=== PATIENT | male | born 1950 | race Caucasian/White ===

== ENCOUNTER → 2016-05-02 | Outpatient (CLI) | payer OTHER, MEDICARE | LOC: BHCLAF 10:00 | PROVIDERS: ATTEND Internal Medicine | DX: I31.3 Pericardial effusion (noninflammatory) (principal); R01.1 Cardiac murmur, unspecified | CPT/HCPCS: 93306-PO ==

== ENCOUNTER 2016-06-15 08:41 | Day surgery (SDC) | payer OTHER, MEDICARE ==
[2016-06-15] MEDS ORDERED: DIAZEPAM 5 MG TAB PO ONE (08:46)
[2016-06-15] MEDS ORDERED: diphenhydrAMINE 25 MG CAP PO ONE ×2 (08:46→09:07)
[2016-06-15] MEDS ORDERED: NS 1,000 ML IV ONE (08:46)
[2016-06-15] MEDS ORDERED: FAMOTIDINE 20 MG TAB PO ONE (08:46)
[2016-06-15] MEDS ORDERED: BENZOCAINE UNIT DOSE SPRAY HURRICAINE MM ONE (08:46)
[2016-06-15] MEDS ORDERED: ASPIRIN EC 325 MG TAB PO ONE ×2 (08:46→09:07)
[2016-06-15] MEDS ORDERED: fentaNYL 100 MCG/2 ML INJ IVP ONE (08:46)
[2016-06-15] MEDS ORDERED: MIDAZOLAM 2 MG/2 ML VIAL IVP ONE (08:46)
[2016-06-15] MEDS ORDERED: FAMOTIDINE 20 MG TAB ONE (09:07)
[2016-06-15] MEDS ORDERED: DIAZEPAM 5 MG TAB ONE (09:08)
--- NOTE | 2016-06-15 09:16 | CPEKG ---
Heart Rate: 54 RR Interval: 1111 P-R Interval: 196 QRSD Interval: 96 QT Interval: 444 QTC Interval: 421 P [place]: -18 QRS [place]: -57 T Wave [place]: 40 EKG Severity - ABNORMAL ECG - EKG Impression: SINUS RHYTHM EKG Impression: LEFT ANTERIOR FASCICULAR BLOCK EKG Impression: CONSIDER ANTEROSEPTAL INFARCT Electronically Signed By: Ayaan Barrera 16-Jun-2016 09:05:05
[2016-06-15 09:26] LABS: % IMMATURE GRANULYOCYTES 0.5 % (0.0-1.1); ABSOLUTE IMMATURE GRANULOCYTES 0.03 10^3/uL (0.00-0.10); ADD DIFF? NO; ADD MORPH? NO; ADD SCAN? NO; ATYPICAL LYMPHOCYTE FLAG 10 (0-99); FRAGMENT RBC FLAG 0 (0-99); HEMATOCRIT 44.7 % (40.0-51.0); HEMOGLOBIN 15.2 g/dL (13.7-17.5); LEFT SHIFT FLG 0 (0-99); LIPEMIA HEMOLYSIS FLAG 90 (0-99); MEAN CELL HEMOGLOBIN 28.7 pg (27.9-34.1); MEAN CELL VOLUME 84.5 fL (81.5-99.8); MEAN PLATELET VOLUME 8.4 fL (8.7-11.7); PLATELET CLUMPS FLAG 0 (0-99); PLATELET COUNT 232 10^3/uL (150-400); RED BLOOD CELL COUNT 5.29 10^6/uL (4.40-6.38); RED CELL DISTRIBUTION WIDTH 13.3 % (11.5-15.2)
[2016-06-15 09:28] LABS: ANION GAP 10 mEq/L (8-16); CALCIUM 9.7 mg/dL (8.5-10.4); CARBON DIOXIDE 27 mEq/l (22-31); CHLORIDE 101 mEq/L (97-110); CHOLESTEROL 204 mg/dL (140-220); CHOLESTEROL/HDL RATIO 2.52 RATIO (1.00-4.97); CREATININE 0.9 mg/dL (0.7-1.3); GLOMERULAR FILTRATION RATE > 60; GLUCOSE 102 mg/dL (70-100); HIGH DENSITY LIPOPROTEIN 81 mg/dL (40-65); LDL/HDL RATIO 1.28 RATIO (1.00-3.64); LOW DENSITY LIPOPROTEIN 104 mg/dL (80-100); MAGNESIUM 1.9 mg/dL (1.6-2.3); NON-HIGH DENSITY LIPOPROTEIN 123 mg/dL (90-129); POTASSIUM 4.2 mEq/L (3.5-5.2); SODIUM 138 mEq/L (134-144); TRIGLYCERIDE 97 mg/dL (40-150); VERY LOW DENSITY LIPOPROTEINS 19 mg/dL (8-25)
[2016-06-15 09:30] LABS: INR 1.11 (0.83-1.16); PROTIME(PATIENT) 14.2 SEC (12.0-15.0)
[2016-06-15] MEDS ORDERED: LIDOCAINE 1% 30 ML SDV ONE (10:36)
[2016-06-15] MEDS ORDERED: IOPAMIDOL (ISOVUE-370) 150 ML BTL IV ONE (10:37)
[2016-06-15] MEDS ORDERED: PROPOFOL 200 MG/20 ML VIAL ONE (10:57)
[2016-06-15] MEDS ORDERED: LIDOCAINE 1% 5 ML SDV ONE (10:59)
[2016-06-15] MEDS ORDERED: CITRIC ACID/SODIUM CITRATE 30 ML UDCUP ONE (11:02)
[2016-06-15] MEDS ORDERED: fentaNYL 100 MCG/2 ML INJ ONE (11:35)
[2016-06-15] MEDS ORDERED: MIDAZOLAM 2 MG/2 ML VIAL ONE (11:35)
--- NOTE | 2016-06-15 13:12 | CPIP ---
PROCEDURE: 1. Right heart catheterization. 2. Left heart catheterization. 3. Coronary angiography. INDICATIONS: Severe mitral regurgitation. Pre cardiac surgery planning. COMPLICATIONS: None. DESCRIPTION OF PROCEDURE: N.p.o. status was confirmed, informed consent obtained, and time-out perf ormed. Sedation was provided by Dr. Bowden of the anesthesia service. The patient was brought to the [facility] catheterization laboratory and prepped and draped in sterile fashion. Lidocaine 1% was used f or local anesthesia of he right groin. Using modified Seldinger technique, a 6-Venezuelan introducer sh eath was placed in the right common femoral artery, and a 7-[place] introducer sheath was placed in t he right common femoral vein. A Holden-Suzi catheter was used for right heart catheterization. JL4 a nd JR4 catheters were used for coronary angiography, and a pigtail catheter was used for left ventri culography. FINDINGS: 1. The left main is normal and bifurcates into the LAD and left circumflex system. There is no sig nificant left main disease. There is visualization of what appears to be a calcified pericardial st ructure that is not vascular. This does not change throughout the procedure. This most likely repr esents pericardial calcification. 2. The LAD is a large vessel that reaches the apex. There is 1 large diagonal. 3. The left circumflex is dominant. There is 1 large obtuse marginal. No significant disease in l eft circumflex or its branches. 4. The right coronary is small and non dominant. No significant disease. LEFT VENTRICULOGRAPHY: Left ventricular ejection fraction is normal at 70%. There is significant m itral regurgitation, at least 3+. No regional wall motion abnormalities. HEMODYNAMICS: Right heart catheterization: RV pressure is 33/4 with an end-diastolic of 8. Despit e wire manipulation and 2 separate Holden-Suzi catheters, we were unable to enter the pulmonary artery . Aortic pressure 106/62. LV pressure 125/2 with an end-diastolic pressure of 14 and RA pressure w as 5 mean. CONCLUSION: 1. No significant coronary disease in this left dominant system. 2. Preserved ejection fraction with [id number] mitral regurgitation. 3. Normal right ventricular systolic pressure and normal left ventricular end-diastolic pressure. 4. Patient's right femoral arteriotomy site was sealed with an Angio-Seal device. He is taken to [facility] in stable condition. Results discussed with the patient and his family. 5. Consideration for cardiac surgery consult regarding the patient's severe mitral regurgitation, w hich was demonstrated earlier on MARVIN today. Copy requested to: Dr. Pena [facility] /[id number]/MODL
--- NOTE | 2016-06-15 13:14 | ECHO ---
[id number] + + [address] : : [place] [address] : : [phone] + Adult Echocardiographic Report + ---+ :Name: JUANITA BOX RStudy Date: 06/15/2016 10:55 AM : : Hospital Admission Number: [id number] Location: CVC: :: 1950 Gender: Male : :Age: 66 yrs Race: WH : :Reason For Study: Eval Mitral Valve : :History: Pre Cath : + ---+ Left Ventricle The left ventricular ejection fraction is normal. Right Ventricle There is a pacemaker lead in the right ventricle. Atria No left atrial mass or thrombus visualized. Injection of contrast documented no interatrial shunt. The interatrial septum is intact with no evidence for an atrial septal defect. Mitral Valve There is bileaflet mitral valve prolapse present. There is severe mitral regurgitation. Flow reversal noted in pulmonary veins consistent with significant mitral regurgitation. Tricuspid Valve Normal tricuspid valve. There is mild tricuspid regurgitation. Aortic Valve The aortic valve is trileaflet. There is no aortic stenosis. Trace to mild aortic regurgitation. Pulmonic Valve The pulmonic valve is normal in structure and function. There is no pulmonic valvular regurgitation. Great Vessels Mild atherosclerotic plaque(s) in the descending aorta. Conclusion Complete MARVIN. Sedation provided by anesthesia service. No complications. The left ventricular ejection fraction is normal. No left atrial mass or thrombus visualized. Injection of contrast documented no interatrial shunt. The interatrial septum is intact with no evidence for an atrial septal defect There is bileaflet mitral valve prolapse present There is severe mitral regurgitation. Flow reversal noted in pulmonary veins consistent with significant mitral regurgitation. There is a pacemaker lead in the right ventricle. There is mild tricuspid regurgitation. The aortic valve is trileaflet. Trace to mild aortic regurgitation. Mild atherosclerotic plaque(s) in the descending aorta. . Final Reading Physician: Dr Lacey Perera electronically signed on 06/15/2016 01:13 PM Ordering Physician: Lacey Perera Performed By: Dr Lacey Perera
== END 2016-06-15 16:26 | disposition home or self-care (01) ==
LOC: FCATH 08:41
PROVIDERS: ATTEND Internal Medicine Cardiovascular Disease
DX: I34.0 Nonrheumatic mitral (valve) insufficiency (principal); I48.0 Paroxysmal atrial fibrillation; Z95.0 Presence of cardiac pacemaker; Z86.73 Personal history of transient ischemic attack (TIA), and cerebral infarction without residual deficits; G47.34 Idiopathic sleep related nonobstructive alveolar hypoventilation; E78.5 Hyperlipidemia, unspecified; K21.9 Gastro-esophageal reflux disease without esophagitis; G47.33 Obstructive sleep apnea (adult) (pediatric)
CPT/HCPCS: C1760; J1644; J2250; J2704; J3010; Q9967

== ENCOUNTER → 2016-08-08 | Outpatient (CLI) | payer OTHER, MEDICARE | LOC: BHFA 10:00 | PROVIDERS: ATTEND Internal Medicine Cardiovascular Disease | DX: I65.23 Occlusion and stenosis of bilateral carotid arteries (principal) ==

== ENCOUNTER 2016-08-15 07:15 | Inpatient (IN) | payer OTHER, MEDICARE ==
[2016-08-19 09:34] LABS: % IMMATURE GRANULYOCYTES 0.4 % (0.0-1.1); ABSOLUTE IMMATURE GRANULOCYTES 0.02 10^3/uL (0.00-0.10); ADD DIFF? NO; ADD MORPH? NO; ADD SCAN? NO; ATYPICAL LYMPHOCYTE FLAG 20 (0-99); FRAGMENT RBC FLAG 0 (0-99); HEMATOCRIT 43.9 % (40.0-51.0); HEMOGLOBIN 15.1 g/dL (13.7-17.5); LEFT SHIFT FLG 0 (0-99); LIPEMIA HEMOLYSIS FLAG 90 (0-99); MEAN CELL HEMOGLOBIN 29.3 pg (27.9-34.1); MEAN CELL HEMOGLOBIN CONCENTR. 34.4 g/dL (32.4-36.7); MEAN CELL VOLUME 85.2 fL (81.5-99.8); MEAN PLATELET VOLUME 8.6 fL (8.7-11.7); PLATELET CLUMPS FLAG 0 (0-99); PLATELET COUNT 188 10^3/uL (150-400); RED BLOOD CELL COUNT 5.15 10^6/uL (4.40-6.38); RED CELL DISTRIBUTION WIDTH 13.4 % (11.5-15.2)
[2016-08-19 09:49] LABS: ANION GAP 9 mEq/L (8-16); CALCIUM 9.4 mg/dL (8.5-10.4); CARBON DIOXIDE 23 mEq/l (22-31); CHLORIDE 105 mEq/L (97-110); CREATININE 0.9 mg/dL (0.7-1.3); GLOMERULAR FILTRATION RATE > 60; GLUCOSE 113 mg/dL (70-100); POTASSIUM 3.9 mEq/L (3.5-5.2); SODIUM 137 mEq/L (134-144)
[2016-08-22] MEDS ORDERED: CITRATE DEXTROSE SOLN 500 ML BAG MISC ONE (06:00)
[2016-08-22] MEDS ORDERED: LIDOCAINE 1% 5 ML SDV ID PRN (06:00)
[2016-08-22] MEDS ORDERED: SODIUM BICARBONATE 20 MEQ, LIDOCAINE 1% 10 ML in NORMOSOL-R 1,000 ML MISC ONE (06:00)
[2016-08-22] MEDS ORDERED: INSULIN REGULAR HUMAN 100 UNIT in NS 100 ML IV ONE (06:00)
[2016-08-22] MEDS ORDERED: MANNITOL 25% 12.5 GM/50 ML VIAL IV ONE (06:00)
[2016-08-22] MEDS ORDERED: ceFAZolin 2 GM/DEXTROSE 100 ML IV ONE (06:00)
[2016-08-22] MEDS ORDERED: AMINOCAPROIC ACID 5 GM/20 ML VIAL IV ONE (06:00)
[2016-08-22] MEDS ORDERED: PHENYLEPHRINE HCL 50 MG in NS 250 ML IV ONE (06:00)
[2016-08-22] MEDS ORDERED: NS 1,000 ML IV ONE (06:00)
[2016-08-22] MEDS ORDERED: NOREPINEPHRINE BITARTRATE 16 MG in NS 250 ML IV ONE (06:00)
[2016-08-22] MEDS ORDERED: LIDOCAINE 1% 2 ML INJ ONE (06:19)
[2016-08-22 06:53] LABS: INR 1.05 (0.83-1.16); PROTIME(PATIENT) 13.6 SEC (12.0-15.0)
--- NOTE | 2016-08-22 07:03 | PDGENHP ---
History and Physical - Chief Complaint severe MR, PAF - History of Present Illness Pt here today for mitral valve repair and Hamilton-Maze. Since last seen in office on 06/20/16 pt reports his health has not changed. He denies syncope, CP, palpitations, SOB, dyspnea, orthopnea, abd pain, LE edema. History Information - Allergies/Home Medication List Allergies/Adverse Reactions: No Known Allergies Allergy (Verified 08/16/16 12:34) Home Medications: Acetaminophen [Tylenol ES 500 mg (*)] 250 mg PO BID PRN 08/20/16 [Last Taken 05/03] Acyclovir [Zovirax 400 mg (*)] 400 mg PO BID PRN 08/20/16 [Last Taken 08/17/16] Budesonide/Formoterol 160/4.5 [Symbicort 160-4.5 Mcg Inh (*)] 1 puffs IH BID PRN 08/20/16 [Last Taken 08/17/16] Omeprazole 40 mg PO DAILY 08/20/16 [Last Taken 08/20/16] SIMVASTATIN 10 mg PO DAILY 08/20/16 [Last Taken 08/19/16] Tamsulosin HCl [Flomax 0.4 MG (*)] 0.4 mg PO DAILY 08/20/16 [Last Taken 08/21/16 ] Temazepam [Restoril 15 MG (*)] 15 mg PO HS 08/20/16 [Last Taken 08/21/16] Warfarin Sodium [Coumadin 5MG (*)] 5 mg PO DAILY16 08/20/16 [Last Taken 08/17/16 ] I have personally reviewed and updated: medical history, social history, surgical history - Past Medical History atrial fibrillation, GERD, hyperlipidemia, pulmonary embolism (severe mr) Additional medical history: severe MR, BPH, esophageal stenosis, sick sinus syndrome, pericardial effusion with tamponade - Surgical History Reports: pacemaker/AICD Additional surgical history: perciardial window, esophageal dilation - Social History Smoking Status: Former smoker Alcohol Use: Rarely Review of Systems Constitutional: Reports: no symptoms EENMT: Reports: no symptoms Cardiac: Reports: no symptoms Respiratory: Reports: no symptoms Gastrointestinal: Reports: no symptoms Genitourinary: Reports: no symptoms Muscolosketal: Reports: no symptoms Neurological: Reports: no symptoms Physical Exam Constitutional: no apparent distress, appears nourished, not in pain Eyes: anicteric sclera Cardiovascular: regular rate and rhythym Respiratory: no respiratory distress, no rales or rhonchi, clear to auscultation Skin: warm, normal color Musculoskeletal: full muscle strength, no muscle tenderness, normal joint ROM, no joint effusions Neurologic: AAOx3 Psychiatric: interacting appropriately, not anxious, not encephalopathic, thought process linear Lab Data & Imaging Review 08/19/16 09:11 08/19/16 09:11 WBC 4.96 10^3/uL (3.80-9.50) 08/19/16 09:11 RBC 5.15 10^6/uL (4.40-6.38) 08/19/16 09:11 Hgb 15.1 g/dL (13.7-17.5) 08/19/16 09:11 Hct 43.9 % (40.0-51.0) 08/19/16 09:11 MCV 85.2 fL (81.5-99.8) 08/19/16 09:11 MCH 29.3 pg (27.9-34.1) 08/19/16 09:11 MCHC 34.4 g/dL (32.4-36.7) 08/19/16 09:11 RDW 13.4 % (11.5-15.2) 08/19/16 09:11 Plt Count 188 10^3/uL (150-400) 08/19/16 09:11 MPV 8.6 fL (8.7-11.7) L 08/19/16 09:11 Neut % (Auto) 53.0 % (39.3-74.2) 08/19/16 09:11 Lymph % (Auto) 29.0 % (15.0-45.0) 08/19/16 09:11 [place] % (Auto) 6.3 % (4.5-13.0) 08/19/16 09:11 Eos % (Auto) 10.3 % (0.6-7.6) H 08/19/16 09:11 Baso % (Auto) 1.0 % (0.3-1.7) 08/19/16 09:11 Nucleat RBC Rel Count 0.0 % (0.0-0.2) 08/19/16 09:11 Absolute Neuts (auto) 2.63 10^3/uL (1.70-6.50) 08/19/16 09:11 Absolute Lymphs (auto) 1.44 10^3/uL (1.00-3.00) 08/19/16 09:11 Absolute Monos (auto) 0.31 10^3/uL (0.30-0.80) 08/19/16 09:11 Absolute Eos (auto) 0.51 10^3/uL (0.03-0.40) H 08/19/16 09:11 Absolute Basos (auto) 0.05 10^3/uL (0.02-0.10) 08/19/16 09:11 Absolute Nucleated RBC 0.00 10^3/uL (0-0.01) 08/19/16 09:11 Immature Gran % 0.4 % (0.0-1.1) 08/19/16 09:11 Immature Gran # 0.02 10^3/uL (0.00-0.10) 08/19/16 09:11 PT 13.6 SEC (12.0-15.0) 08/22/16 06:20 INR 1.05 (0.83-1.16) 08/22/16 06:20 Sodium 137 mEq/L (134-144) 08/19/16 09:11 Potassium 3.9 mEq/L (3.5-5.2) 08/19/16 09:11 Chloride 105 mEq/L (97-110) 08/19/16 09:11 Carbon Dioxide 23 mEq/l (22-31) 08/19/16 09:11 Anion Gap 9 mEq/L (8-16) 08/19/16 09:11 BUN 16 mg/dL (7-23) 08/19/16 09:11 Creatinine 0.9 mg/dL (0.7-1.3) 08/19/16 09:11 Estimated GFR > 60 08/19/16 09:11 Glucose 113 mg/dL (70-100) H 08/19/16 09:11 Hemoglobin A1c 6.0 % (4.0-6.0) 08/19/16 09:12 Estim Average Glucose 126 mg/dL (68-126) 08/19/16 09:12 Calcium 9.4 mg/dL (8.5-10.4) 08/19/16 09:11 Patient ABO/Rh O POSITIVE 08/19/16 09:11 Antibody Screen NEGATIVE 08/19/16 09:11 Visualized and Interpreted Chest x-ray results: Yes Chest X-Ray results: no infiltrate Visualized and Interpreted EKG results: Yes EKG Interpretation: Positive for: normal sinsus rhythm Assessment & Plan Assessment: Severe MR/PAF Plan: Attempt MICS MV repair/Hamilton-Maze, open if not possible.
[2016-08-22] MEDS ORDERED: MIDAZOLAM 2 MG/2 ML VIAL ONE ×3 (07:09→07:25)
[2016-08-22] MEDS ORDERED: PROPOFOL/EMULSION 500 MG/50 ML BOTTLE IV ONE ×2 (07:25→10:58)
[2016-08-22] MEDS ORDERED: ROCURONIUM 50 MG/5 ML VIAL ONE (07:25)
[2016-08-22] MEDS ORDERED: ROCURONIUM 100 MG/10 ML VIAL ONE (07:25)
[2016-08-22] MEDS ORDERED: REMIFENTANIL HCL 1 MG VIAL ONE ×2 (07:25→10:58)
[2016-08-22] MEDS ORDERED: DEXAMETHASONE 4 MG/ML VIAL ONE ×2 (07:26)
[2016-08-22] MEDS ORDERED: BUPIVACAINE/EPI 0.25% 30 ML SDV ONE (07:26)
[2016-08-22] MEDS ORDERED: PHENYLEPHRINE HCL 100 MCG/ML SYR ONE ×2 (07:26→12:48)
[2016-08-22] MEDS ORDERED: epHEDrine SULFATE 10 MG/ML SYR ONE ×2 (07:26)
[2016-08-22] MEDS ORDERED: ONDANSETRON 4 MG/2 ML VIAL ONE (07:26)
[2016-08-22] MEDS ORDERED: LIDOCAINE HCL 160 MG/4 ML LTA KIT TP ONE (07:27)
[2016-08-22] MEDS ORDERED: LIDOCAINE 2% 100 MG/5 ML SYR ONE ×2 (07:27→07:32)
[2016-08-22] MEDS ORDERED: CALCIUM CHLORIDE 1 GM/10 ML INJ ONE ×3 (07:27→07:32)
[2016-08-22] MEDS ORDERED: MILRINONE/DEXTROSE/100 ML BAG IV ONE (07:28)
[2016-08-22] MEDS ORDERED: PROTAMINE SULFATE 50 MG/5 ML VIAL IVP ONE (07:28)
[2016-08-22] MEDS ORDERED: POTASSIUM Cl (KCl) 20 MEQ/50 ML BAG IV ONE (07:28)
[2016-08-22] MEDS ORDERED: AMINOCAPROIC ACID 5 GM/20 ML VIAL ONE ×3 (07:29→08:00)
[2016-08-22] MEDS ORDERED: niCARdipine/NACL/200 ML BAG IV ONE (07:29)
[2016-08-22] MEDS ORDERED: NA BICARBONATE 50 MEQ/50 ML VIAL ONE (07:29)
[2016-08-22] MEDS ORDERED: DOPamine/DEXTROSE/250 ML BAG IV ONE (07:29)
[2016-08-22] MEDS ORDERED: ADENOSINE 6 MG/2 ML VIAL ONE (07:30)
[2016-08-22] MEDS ORDERED: AMIODARONE HCL 150 MG/3 ML VIAL ONE ×2 (07:30→07:33)
[2016-08-22] MEDS ORDERED: HEPARIN 10,000 UNIT/10 ML MDV ONE ×2 (07:31→07:33)
[2016-08-22] MEDS ORDERED: ceFAZolin 1 GM VIAL ONE (07:31)
[2016-08-22] MEDS ORDERED: ALBUMIN 5% 250 ML BOTTLE IV ONE (07:32)
[2016-08-22] MEDS ORDERED: CITRATE DEXTROSE SOLN 500 ML BAG ONE (07:32)
[2016-08-22] MEDS ORDERED: methylPREDNISolone SOD SUCC 1 GM/8 ML VIAL ONE (07:33)
[2016-08-22] MEDS ORDERED: MAGNESIUM SULFATE 1 GM/2 ML VIAL ONE (07:33)
[2016-08-22] MEDS ORDERED: MAGNESIUM SULF 2 GM/WATER 50 ML BAG IV ONE (09:52)
[2016-08-22] MEDS: MUPIROCIN 2% 22 GM OINT NS SCH ×3 (10:29→22:03)
[2016-08-22] MEDS ORDERED: DEXMEDETOMIDINE HCL 400 MCG in NS 100 ML IV SCH (11:30)
[2016-08-22] MEDS ORDERED: LACTULOSE 20 GM/30 ML UDCUP PO PRN (12:38)
[2016-08-22] MEDS ORDERED: BISACODYL 10 MG SUPP PR PRN (12:38)
[2016-08-22] MEDS ORDERED: MAGNESIUM SULF 2 GM/WATER 50 ML IV ONE (12:38)
[2016-08-22] MEDS ORDERED: SUGAMMADEX SODIUM 200 MG/2 ML VIAL IVP ONE (12:38)
[2016-08-22] MEDS ORDERED: MAGNESIUM HYDROXIDE 30 ML UDCUP PO PRN (12:38)
[2016-08-22] MEDS ORDERED: ACETAMINOPHEN 650 MG SUPP PR PRN (12:38)
[2016-08-22] MEDS ORDERED: SODIUM CL NASAL 45 ML BTL EACHNARE PRN (12:38)
[2016-08-22] MEDS ORDERED: POLYETHYLENE GLYCOL 3350 17 GM PKT PO PRN (12:38)
[2016-08-22] MEDS ORDERED: MEPERIDINE 25 MG/ML SYR IVP PRN (12:38)
[2016-08-22] MEDS ORDERED: D50W 25 GM/50 ML SYR IVP PRN (12:38)
[2016-08-22] MEDS ORDERED: ONDANSETRON DISINTEGRATING 4 MG TAB PO PRN (12:38)
[2016-08-22] MEDS ORDERED: PANTOPRAZOLE SODIUM 40 MG in NS 100 ML IV ONE (12:38)
[2016-08-22] MEDS ORDERED: POTASSIUM Cl (KCl) 50 ML IV PRN (12:38)
[2016-08-22] MEDS ORDERED: ONDANSETRON 4 MG/2 ML VIAL IVP PRN (12:38)
[2016-08-22] MEDS ORDERED: NS 1,000 ML IV SCH (12:45)
[2016-08-22] MEDS ORDERED: INSULIN REGULAR HUMAN 100 UNIT in NS 100 ML IV SCH (13:00)
--- NOTE | 2016-08-22 13:15 | POSTOPPROG ---
Post Op Note Date of Operation: 08/22/16 Surgeon: oCnnor Salcedo Casino Cashier: Marco Angjosie Anesthesia: GET(General Endotracheal), Local (Specify) (>25 marcaine w epi) Pre-op Diagnosis: MR, PAF Procedure: MVA #32 Physio, reconstruct chord to A1, L side CMIV w cryo, LCFA/V cannula Inf/Abcess present in the surg proc area at time of surgery?: No EBL: 50-100 Drains: Other (1 thomas)
[2016-08-22] MEDS: ceFAZolin 2 GM/DEXTROSE 100 ML IV SCH ×2 (14:35→22:03)
[2016-08-22] MEDS: ALBUMIN 5% 250 ML IV PRN ×2 (14:41→15:30)
--- NOTE | 2016-08-22 14:48 | GCON ---
[f rep st] CONSULTATION BAR TACKER SEWING MACHINE CONSULTATION The patient examined postoperatively after receiving a mitral valve repair. HISTORY OF PRESENT ILLNESS: The patient is a 66-year-old white male with a past medical history inc luding atrial fibrillation, gastroesophageal reflux disease, hyperlipidemia and pulmonary embolism. He is examined postoperatively after receiving a mitral valve repair and a Hamilton-Maze. He did well i ntraoperatively and was admitted to the intensive care unit. He was extubated and is doing well. Nyasia baldwin is still somewhat somnolent post anesthesia. PAST MEDICAL HISTORY: Again, significant for benign prostatic hypertrophy, mitral regurg, esophagea l stenosis, sick sinus syndrome, pericardial effusion, atrial fibrillation, gastroesophageal reflux disease, hyperlipidemia, pulmonary embolism. ALLERGIES: No known allergies to medications. SOCIAL HISTORY: Previous smoker, none for many years. No significant alcohol use. He is . Has excellent family support. MEDICATIONS: At home include Tylenol, acyclovir, Symbicort, omeprazole, simvastatin, tamsulosin, Re storil and Coumadin. PHYSICAL EXAM: VITAL SIGNS: Blood pressure is 120/68, pulse 76, respirations 18, temperature 35.2, oxygen saturation 95% on 10 L. GENERAL: He is a well-developed, well-nourished 66-year-old white male who is resting comfortably on supplemental oxygen. HEENT: Eyes CHIN EOMI. Throat shows no er ythema or tonsillar hypertrophy. NECK: Supple. There is no cervical adenopathy. HEART: Regular rate and rhythm with a 2/6 systolic murmur, left sternal border without radiation. LUNGS: Show dim inished breath sounds but no wheeze. ABDOMEN: Soft, nontender. Bowel sounds are present. EXTREMI TIES: No clubbing, cyanosis, or edema. LABORATORIES: White count is 4.9, hemoglobin 15, hematocrit 43, platelet count is 183. INR 1.05. Sodium 137, potassium 3.9, chloride 105, CO2 is 23, BUN 16, creatinine 0.9, glucose is 113. IMPRESSION: 1. Mitral regurgitation. 2. Status post mitral valve repair. 3. Respiratory currently stable. 4. History of atrial fibrillation. 5. History of esophageal stenosis. 6. History of sick sinus syndrome. RECOMMENDATIONS: 1. Wean FiO2 as tolerated. 2. DVT and PE prophylaxis, holding anticoagulation for now. 3. Stress ulcer prophylaxis. 4. Aggressive blood sugar control. 5. Follow end-tidal CO2 closely. 6. Adequate pain control. /[id number]/MODL
[2016-08-22] MEDS: KETOROLAC 15 MG/1 ML SDV IVP SCH ×2 (16:58→23:27)
[2016-08-22 17:57] LABS: CALCULATED OXYGEN SATURATION 91 % (92-95); O2 CONCENTRATIION 0 % (0-100)
[2016-08-22] MEDS: METOCLOPRAMIDE 10 MG/2 ML VIAL IVP PRN (19:02)
[2016-08-22] MEDS: HYDROCODONE/APAP 5/325 TAB PO PRN (19:56)
[2016-08-22] MEDS: fentaNYL 100 MCG/2 ML INJ IVP PRN ×2 (20:32→23:58)
--- NOTE | 2016-08-22 21:09 | GOP ---
[f rep st] OPERATIVE REPORT DATE OF OPERATION: 08/22/2016 SURGEON: Connor Salcedo DO BOARD DESIGN ENGINEER: Justin Tobin PA-C. ANESTHESIOLOGIST: Konrad Brink MD. PREOPERATIVE DIAGNOSIS: 1. 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 2. Paroxysmal atrial fibrillation. 3. Permanent pacemaker, chronic. POSTOPERATIVE DIAGNOSIS: 1. 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 2. Paroxysmal atrial fibrillation. 3. Permanent pacemaker, chronic. PROCEDURE PERFORMED: 1. Complex mitral valve repair with chordal reconstruction to A1 and #32 Physio annuloplasty ring. 2. Left-sided Hamilton-Maze IV with cryoablation via right anterior thoracotomy minimally invasive approach. FINDINGS: DESCRIPTION OF PROCEDURE: Patient was consented for surgery, brought to the operating room, and intubated with a single lumen tube. He was prepped, propped up on his right side. Both groins were accessed. He was prepped and draped in a sterile classical manner. Initially, an inframammary 4 cm incision was placed retracting the pectoralis muscle up to the lateral portion of the 4th intercostal space. It was entered with good visualization of the superior pulmonary vein and aorta. Pericardium was opened with Bovie, staying 3 cm cephalad to the phrenic nerve. Pericardial fat pad was removed inferiorly, staying away from the phrenic. Retraction sutures were placed, and antegrade cardioplegic catheter needle was placed after heparinization. We then placed a retraction suture in the groove between the left and right atrium, and with a Seldinger technique, placed the post for retractor of the mitral valve through the anterior chest wall. We then exposed the right common femoral artery and vein, which were good quality vessels. 5-0 Prolene pursestring suture was placed, and under fluoro guidance, the venous cannula was placed in the superior vena cava over a guidewire without difficulty. We then placed a 17-[place]ican arterial line after visualizing the wire and the descending thoracic aorta into the common femoral artery. Cardiopulmonary bypass was begun. The cross-clamp was applied, and cardioplegic arrest was obtained with antegrade cardioplegia throughout the procedure. We then opened the left atrium and placed a mitral lift retractor, which was brought through the chest wall previously. We had good exposure of the mitral valve. LA sump was placed through a separate stab wound inferiorly into the left atrium. We then performed inspection of the valve. He had a ruptured chord to A1. Otherwise, he had a classic myxomatous valve with coaptation but annular dilatation. I then placed circumferential annuloplasty sutures in the annulus. I reconstructed a [place]-Pantera suture to A1, tying it to the anteromedial papillary muscle, restoring it to normal physiology. He was then sized for a 32 ring, which was secured in place with Cor-Knots. Distending the ventricle revealed no regurgitation. I then proceeded with radiofrequency ablation of both pulmonary veins, the isthmus line, the connecting line between the left and right inferior pulmonary veins, as well as the roof lesion between the superior pulmonary veins. We also extended the lesion between the left superior pulmonary vein and the tip of the appendage, which was then oversewn with a continuous running 4-0 Prolene suture. The left atrium was then closed, and with the patient in Trendelenburg. It should be noted CO2 had been infused throughout the procedure. The cross-clamp was removed with suction on the ascending aortic vent, and the LV sump placed across the valve. When no further air was identified, and normal sinus rhythm was restored, the patient was easily weaned from bypass, after removing the LV sump. Heparin was reversed with protamine. LV function appeared to be well-preserved, and mitral competence was confirmed with no significant regurgitation. The heparin was reversed with protamine. The cannula was removed and oversewn with primary repair of the femoral artery and vein. A single chest tube was placed. V wires were brought out through a separate stab wound. The pericardium was left open. The rib was approximated with interrupted #2 Vicryl. Muscle was approximated with 0 Vicryl, the subcu with 3-0 Vicryl, and skin with Dexon. Dressings were applied. The patient was extubated in the OR, and returned to ICU in stable condition. /[id number]/MODL MTDD
[2016-08-22 22:50] LABS: HEMATOCRIT 34.3 % (40.0-51.0); HEMOGLOBIN 11.5 g/dL (13.7-17.5); MEAN CELL HEMOGLOBIN 29.5 pg (27.9-34.1); MEAN CELL HEMOGLOBIN CONCENTR. 33.5 g/dL (32.4-36.7); MEAN CELL VOLUME 87.9 fL (81.5-99.8); RED BLOOD CELL COUNT 3.9 10^6/uL (4.40-6.38); RED CELL DISTRIBUTION WIDTH 13.6 % (11.5-15.2)
[2016-08-23] MEDS: ALBUMIN 5% 250 ML IV PRN ×2 (00:06→00:18)
[2016-08-23] MEDS: HYDROCODONE/APAP 5/325 TAB PO PRN ×5 (03:58→20:39)
[2016-08-23] MEDS: METOCLOPRAMIDE 10 MG/2 ML VIAL IVP PRN (04:11)
[2016-08-23] MEDS: fentaNYL 100 MCG/2 ML INJ IVP PRN (04:11)
[2016-08-23] MEDS: KETOROLAC 15 MG/1 ML SDV IVP SCH ×4 (05:20→23:15)
[2016-08-23] MEDS: ceFAZolin 2 GM/DEXTROSE 100 ML IV SCH ×3 (05:21→22:19)
[2016-08-23 05:33] LABS: % IMMATURE GRANULYOCYTES 0.6 % (0.0-1.1); ABSOLUTE IMMATURE GRANULOCYTES 0.08 10^3/uL (0.00-0.10); ADD DIFF? NO; ADD MORPH? NO; ADD SCAN? NO; ATYPICAL LYMPHOCYTE FLAG 0 (0-99); FRAGMENT RBC FLAG 0 (0-99); HEMATOCRIT 31.7 % (40.0-51.0); HEMOGLOBIN 10.4 g/dL (13.7-17.5); LEFT SHIFT FLG 50 (0-99); LIPEMIA HEMOLYSIS FLAG 80 (0-99); MEAN CELL HEMOGLOBIN 29.1 pg (27.9-34.1); MEAN CELL HEMOGLOBIN CONCENTR. 32.8 g/dL (32.4-36.7); MEAN CELL VOLUME 88.8 fL (81.5-99.8); MEAN PLATELET VOLUME 9.6 fL (8.7-11.7); PLATELET CLUMPS FLAG 20 (0-99); PLATELET COUNT 96 10^3/uL (150-400); RED BLOOD CELL COUNT 3.57 10^6/uL (4.40-6.38); RED CELL DISTRIBUTION WIDTH 13.6 % (11.5-15.2)
[2016-08-23] MEDS: HEPARIN 5,000 UNIT/0.5 ML SYR SC SCH ×2 (05:59→14:22)
[2016-08-23 06:11] LABS: ANION GAP 5 mEq/L (8-16); CALCIUM 8.5 mg/dL (8.5-10.4); CARBON DIOXIDE 23 mEq/l (22-31); CHLORIDE 105 mEq/L (97-110); CREATININE 0.8 mg/dL (0.7-1.3); GLOMERULAR FILTRATION RATE > 60; GLUCOSE 105 mg/dL (70-100); POTASSIUM 4.8 mEq/L (3.5-5.2); SODIUM 133 mEq/L (134-144)
[2016-08-23] MEDS: CEPACOL LOZENGE PO PRN ×2 (06:56→10:31)
--- NOTE | 2016-08-23 07:53 | SOAPPROG ---
SOAP Progress Note Assessment/Plan: POD #1: MICS complex MV repair #22 Physio annuloplasty ring, left-sided Hamilton- Maze IV with ANDREAS exclusion Severe MR s/p complex MV repair with annuloplasty ring - Transfer to PCU - Coumadin as per Hamilton-Maze PAF s/p left-sided left-sided Hamilton-Maze IV - Coumadin, INR goal 2-3, duration dependent on rhythm h/o SSS s/p PPM - Re-interogated post-op without issues Subjective: Pain well-controlled. Denies SOB. Objective: Vital Signs Temp Pulse Resp BP Pulse Ox 36.9 C 73 22 H 126/61 H 96 08/23/16 07:00 08/23/16 07:00 08/23/16 07:00 08/23/16 07:00 08/23/16 07:00 Laboratory Results 08/23/16 05:15 08/23/16 05:15 08/22/16 08/23/16 08/24/16 05:59 05:59 05:59 Intake Total 2586 Output Total 3435 Balance -849 PT 13.6 SEC (12.0-15.0) 08/22/16 06:20 INR 1.05 (0.83-1.16) 08/22/16 06:20 Physical Exam - Physical Exam General Appearance: WD/WN, alert, no apparent distress EENT: normal ENT inspection Neck: normal inspection Respiratory: lungs clear, No wheezing Cardiac/Chest: other (AP) Abdomen: non-tender, soft, No distended Skin: normal color, warm/dry Extremities: No pedal edema Neuro/Psych: no motor/sensory deficits, alert, normal mood/affect, oriented x 3 ICD10 Worksheet Patient Problems: Problems Problem Status Onset Acute renal failure Acute Hyperkalemia Acute Pericardial effusion Acute Pulmonary embolism on left Acute Status post placement of cardiac pacemaker Acute Supratherapeutic INR Acute TIA (transient ischemic attack) Acute
[2016-08-23] MEDS: MUPIROCIN 2% 22 GM OINT NS SCH ×2 (08:15→22:29)
[2016-08-23] MEDS: TAMSULOSIN HCL 0.4 MG CAP PO SCH (08:16)
[2016-08-23] MEDS: PANTOPRAZOLE SODIUM 40 MG TAB PO SCH (08:16)
[2016-08-23] MEDS ORDERED: CEPACOL LOZENGE PO PRN (08:25)
[2016-08-23] MEDS ORDERED: CALCIUM CARBONATE 500 MG CHEWABLE TAB PO PRN (08:30)
--- NOTE | 2016-08-23 08:48 | PDINTPN ---
Client Hr Manager Progress Note Assessment/Plan: Assessment/plan: * Status post mitral valve-minimally invasive * Respiratory- stable off mechanical ventilation. * Pain-well controlled * Gastroesophageal reflux disease-struggling with control -will add Tums * Sore throat-will add Cepacol Subjective: Sitting up, complains of severe reflux. Pain is well tolerated from the incision, he denies any shortness of breath cough or production of sputum. Objective: Vital Signs Temp Pulse Resp BP Pulse Ox 36.9 C 70 18 109/55 L 95 08/23/16 07:54 08/23/16 07:54 08/23/16 07:54 08/23/16 07:54 08/23/16 07:54 Laboratory Results 08/23/16 05:15 08/23/16 05:15 08/22/16 08/23/16 08/24/16 05:59 05:59 05:59 Intake Total 2586 Output Total 3435 Balance -849 PT 13.6 SEC (12.0-15.0) 08/22/16 06:20 INR 1.05 (0.83-1.16) 08/22/16 06:20 Physical Exam - Physical Exam General Appearance: alert, mild distress EENT: PERRL/EOMI, normal ENT inspection Neck: non-tender, full range of motion Respiratory: chest non-tender, lungs clear, normal breath sounds Cardiac/Chest: normal peripheral pulses, regular rate, rhythm, systolic murmur Peripheral Pulses: 2+: carotid (R), carotid (L), femoral (R), femoral (L), dorsalis-pedis (R), dorsalis-pedis (L) Abdomen: normal bowel sounds, non-tender, soft Male Genitalia: deferred Rectal: deferred Skin: normal color, warm/dry Neuro/Psych: no motor/sensory deficits, alert, normal mood/affect, oriented x 3 ICD10 Worksheet Patient Problems: Problems Problem Status Onset Acute renal failure Acute Hyperkalemia Acute Pericardial effusion Acute Pulmonary embolism on left Acute Status post placement of cardiac pacemaker Acute Supratherapeutic INR Acute TIA (transient ischemic attack) Acute
[2016-08-23] MEDS: traMADol 50 MG TAB PO PRN (10:31)
[2016-08-23] MEDS ORDERED: NON-FORMULARY NEW DRUG (Omeprazole [Omeprazole] 40 MG) PO SCH (14:30)
[2016-08-23] MEDS ORDERED: PANTOPRAZOLE SODIUM 40 MG TAB PO SCH (15:00)
[2016-08-23] MEDS: WARFARIN SODIUM 5 MG TAB PO SCH (15:58)
[2016-08-23] MEDS ORDERED: WARFARIN SODIUM 5 MG TAB PO SCH (16:00)
[2016-08-23] MEDS: BUDESONIDE/FORMOTEROL 160/4.5 60 PUFFS/MDI IH PRN (16:38)
[2016-08-23] MEDS: TEMAZEPAM 15 MG CAP PO SCH (22:19)
[2016-08-23] MEDS: SENNOSIDES/DOCUSATE SODIUM TAB PO SCH (22:19)
[2016-08-23] MEDS: CALCIUM CARBONATE 500 MG CHEWABLE TAB PO PRN (23:18)
[2016-08-24] MEDS: CALCIUM CARBONATE 500 MG CHEWABLE TAB PO PRN ×2 (04:30→23:36)
[2016-08-24] MEDS: HYDROCODONE/APAP 5/325 TAB PO PRN ×2 (04:30→14:57)
[2016-08-24 04:42] LABS: % IMMATURE GRANULYOCYTES 0.4 % (0.0-1.1); ABSOLUTE IMMATURE GRANULOCYTES 0.03 10^3/uL (0.00-0.10); ADD DIFF? NO; ADD MORPH? NO; ADD SCAN? NO; ATYPICAL LYMPHOCYTE FLAG 0 (0-99); FRAGMENT RBC FLAG 0 (0-99); HEMATOCRIT 29.6 % (40.0-51.0); HEMOGLOBIN 9.9 g/dL (13.7-17.5); LEFT SHIFT FLG 30 (0-99); LIPEMIA HEMOLYSIS FLAG 80 (0-99); MEAN CELL HEMOGLOBIN 29.8 pg (27.9-34.1); MEAN CELL HEMOGLOBIN CONCENTR. 33.4 g/dL (32.4-36.7); MEAN CELL VOLUME 89.2 fL (81.5-99.8); MEAN PLATELET VOLUME 9.9 fL (8.7-11.7); PLATELET CLUMPS FLAG 10 (0-99); PLATELET COUNT 67 10^3/uL (150-400); RED BLOOD CELL COUNT 3.32 10^6/uL (4.40-6.38); RED CELL DISTRIBUTION WIDTH 13.7 % (11.5-15.2)
[2016-08-24 04:57] LABS: INR 1.22 (0.83-1.16); PROTIME(PATIENT) 15.4 SEC (12.0-15.0)
[2016-08-24 05:00] LABS: ANION GAP 5 mEq/L (8-16); CALCIUM 8.6 mg/dL (8.5-10.4); CARBON DIOXIDE 28 mEq/l (22-31); CHLORIDE 99 mEq/L (97-110); CREATININE 0.9 mg/dL (0.7-1.3); GLOMERULAR FILTRATION RATE > 60; GLUCOSE 104 mg/dL (70-100); POTASSIUM 4.7 mEq/L (3.5-5.2); SODIUM 132 mEq/L (134-144)
[2016-08-24] MEDS: SENNOSIDES/DOCUSATE SODIUM TAB PO SCH ×2 (07:55→20:42)
[2016-08-24] MEDS: PANTOPRAZOLE SODIUM 40 MG TAB PO SCH ×2 (07:56→23:36)
[2016-08-24] MEDS: TAMSULOSIN HCL 0.4 MG CAP PO SCH (07:56)
[2016-08-24] MEDS: PRAVASTATIN SODIUM 20 MG TAB PO SCH (07:56)
--- NOTE | 2016-08-24 07:58 | SOAPPROG ---
SOAP Progress Note Assessment/Plan: Assessment: POD#2 MICS complex MV repair w #32 Physio ring annuloplasty, left- sided Hamilton-Maze IV, oversew of the orifice of the ANDREAS. Sx severe MR - Amenable to complex repair via mini rt thoracotomy w peripheral CPB. Extubated in the OR. Stable early postop course. No significant volume overload. Antithrombotic prophylaxis as per Maze. PAF/chronically anticoagulated - s/p left-sided left-sided Hamilton-Maze IV. Predominant postop rhythm Apaced. Coumadin resumed. Existing INR parameters of 2 -3 sufficient for valvular prophylaxis. Use of BB as allowed by BP. Presence of PPM - for hx of SSS. Function intact by postop interrogation. Acute expected blood loss anemia with thrombocytopenia - Stable. No transfusions required. VTE prophylaxis w Coumadin. Care w dosing while plt count depressed. Postoperative sore throat - Impairing oral intake. Hx esophageal strictures. Will ask ENT to eval. Plan: Remove TCPW. ENT consult. Cont home dose of Coumadin 5 mg daily. Consider begin daily diuresis this afternoon. Baseline postop echo tomorrow. 08/24/16 07:55 Subjective: Physically feels well. Tolerating OOB with relative ease. Only concern is a sore and swollen throat that is making swallowing (even liquids) difficult. No hoarseness or blood tinged secretions. Objective: Vital Signs Temp Pulse Resp BP Pulse Ox 37.2 C 70 20 138/79 H 96 08/24/16 07:46 08/24/16 07:46 08/24/16 07:46 08/24/16 07:46 08/24/16 07:46 Laboratory Results 08/24/16 04:10 08/24/16 04:10 08/23/16 08/24/16 08/25/16 05:59 05:59 05:59 Intake Total 2586 925 Output Total 3435 971 Balance -849 -46 PT 15.4 SEC (12.0-15.0) H 08/24/16 04:10 INR 1.22 (0.83-1.16) H 08/24/16 04:10 Apaced. BPs for the most part 90s-110s. Min suppl O2 req. Balanced I/Os. Overall +6kg. Platelet dip, ? d/t toradol. Physical Exam - Physical Exam General Appearance: alert, no apparent distress EENT: other (neck soft, no crepitus) Respiratory: lungs clear, other (thomas drain to bulb suction, serosang drainage) Cardiac/Chest: regular rate, rhythm, other (rt mini thoracot CDI) Abdomen: non-tender, soft Skin: warm/dry Extremities: swelling (1+ dependent), other (rt groin soft, incision CDI) ICD10 Worksheet Patient Problems: Problems Problem Status Onset Acute renal failure Acute Hyperkalemia Acute Pericardial effusion Acute Pulmonary embolism on left Acute Status post placement of cardiac pacemaker Acute Supratherapeutic INR Acute TIA (transient ischemic attack) Acute
[2016-08-24] MEDS: traMADol 50 MG TAB PO PRN ×3 (08:11→22:12)
[2016-08-24] MEDS: WARFARIN SODIUM 5 MG TAB PO SCH (14:57)
[2016-08-24] MEDS ORDERED: FUROSEMIDE 20 MG/2 ML VIAL IVP ONE (15:39)
[2016-08-24] MEDS: IBUPROFEN 600 MG TAB PO PRN (22:11)
[2016-08-24] MEDS: TEMAZEPAM 15 MG CAP PO SCH (22:11)
[2016-08-25 06:05] LABS: POTASSIUM 4.2 mEq/L (3.5-5.2)
[2016-08-25 06:49] LABS: INR 1.24 (0.83-1.16); PROTIME(PATIENT) 15.6 SEC (12.0-15.0)
[2016-08-25] MEDS: IBUPROFEN 600 MG TAB PO PRN ×2 (07:42→16:15)
[2016-08-25] MEDS: traMADol 50 MG TAB PO PRN (07:43)
[2016-08-25] MEDS: CEPACOL LOZENGE PO PRN ×2 (07:46→10:42)
--- NOTE | 2016-08-25 08:06 | SOAPPROG ---
SOAP Progress Note Assessment/Plan: POD #3: MICS complex MV repair #22 Physio annuloplasty ring, left-sided Hamilton- Maze IV with ANDREAS exclusion Severe MR s/p complex MV repair with annuloplasty ring - Post-op ECHO showed normal functioning MV - Coumadin as per Hamilton-Maze PAF s/p left-sided left-sided Hamilton-Maze IV - Coumadin, INR goal 2-3, duration dependent on rhythm h/o SSS s/p PPM - Re-interogated post-op without issues Dispostion - Home today Subjective: Feels well. Would like to go home today. Objective: Vital Signs Temp Pulse Resp BP Pulse Ox 36.9 C 72 21 H 125/76 H 97 08/25/16 07:53 08/25/16 07:53 08/25/16 07:53 08/25/16 07:53 08/25/16 07:53 Laboratory Results 08/25/16 05:45 08/25/16 05:45 08/24/16 08/25/16 08/26/16 05:59 05:59 05:59 Intake Total 925 1610 Output Total 971 790 90 Balance -46 820 -90 PT 15.6 SEC (12.0-15.0) H 08/25/16 05:45 INR 1.24 (0.83-1.16) H 08/25/16 05:45 Physical Exam - Physical Exam General Appearance: WD/WN, alert, no apparent distress EENT: normal ENT inspection Neck: normal inspection Respiratory: No respiratory distress Cardiac/Chest: regular rate, rhythm Abdomen: non-tender, soft, No distended Skin: normal color, warm/dry Extremities: pedal edema (Trace B/L) Neuro/Psych: no motor/sensory deficits, alert, normal mood/affect, oriented x 3 ICD10 Worksheet Patient Problems: Problems Problem Status Onset Acute renal failure Acute Hyperkalemia Acute Pericardial effusion Acute Pulmonary embolism on left Acute Status post placement of cardiac pacemaker Acute Supratherapeutic INR Acute TIA (transient ischemic attack) Acute
--- NOTE | 2016-08-25 09:32 | ECHO ---
[id number] + + [id number] : : [place] [address] : : [phone] + + Adult Echocardiographic Report + ---+ :Name: JUANITA BOX RStudy Date: 08/25/2016 08:05 AM BP: 125/76 mmHg : : Hospital Admission Number: [id number] Location: 212: :: 1950 Gender: Male Height: 68 in : :Age: 66 yrs Race: WH Weight: 163 lb : :Reason For Study: S/P mitral valve repair with #32 Solano : :ring BSA: 1.9 meters2 : :History: MVP, MR; : + ---+ MMode/2D Measurements \T\ Calculations IVSd: 1.1 cm RVDd: 2.9 cm FS: 24.8 % Ao root diam: LVPWd: 0.93 cm LVIDd: 5.1 cm EDV(Teich): 3.5 cm LVIDs: 3.9 cm 125.7 ml LA dimension: ESV(Teich): 4.0 cm 64.3 ml EF(Teich): 48.8 % LVLd ap4: 9.2 cm SV(MOD-sp4): EDV(MOD-sp4): 75.0 ml 140.0 ml LVLs ap4: 7.9 cm ESV(MOD-sp4): 65.0 ml EF(MOD-sp4): 53.6 % Normal Measurement Values: + + :LVIDd (3.5-5.7cm) IVSd (0.6-1.1cm) LVPWd (0.6-1.1cm) Aortic Root (2.0-3.7cm)Left Atrium (1.5-4.0cm): :LV Vol(d) (76-115ml) LV Vol(s) (29-48ml) Ejec Fraction (50-65%)PV Jaun (0.6- 1.2m/s) TV Jaun (0.4-1.0m/s) : :MV E Jaun (0.8-1.0m/s)MV A Jaun (0.3-1.0m/s)LVOT Jaun (0.7-1.2m/s) Asc Ao Jaun ( 0.9-1.8m/s) : + + Doppler Measurements \T\ Calculations MV V2 max: MV P1/2t max jaun: Ao V2 max: LV V1 max: 153.2 cm/sec 159.9 cm/sec 129.1 cm/sec 101.4 cm/sec MV max PG: MV P1/2t: 74.0 msec Ao max PG: LV V1 max P.4 mmHg MVA(P1/2t): 3.0 cm2 6.7 mmHg 4.1 mmHg MV V2 mean: MV dec slope: 78.1 cm/sec 633.0 cm/sec2 MV mean P.0 mmHg MV V2 VTI: 32.7 cm PA V2 max: TR max jaun: 79.1 cm/sec 257.4 cm/sec PA max PG: TR max P.5 mmHg 2.5 mmHg RAP systole: 5.0 mmHg RVSP(TR): 31.5 mmHg Left Ventricle The left ventricle is normal in size. There is normal left ventricular wall thickness. Left ventricular systolic function is low normal. Ejection Fraction = 50-55%. Diastolic dysfunction indeterminate due to MV ring. Post- op septal motion noted. Right Ventricle The right ventricle is normal in size and function. There is a pacemaker lead in the right ventricle. Atria The left atrium is moderately dilated. The Left Atrial Volume is 45 ml/m2. The right atrium is mildly dilated. Mitral Valve S/P mitral valve repair with #32 Solano ring. 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 Mean gradient across the repaired MV is 3mmHg. There is no mitral valve stenosis. Tricuspid Valve The tricuspid valve is normal in structure and function. There is no tricuspid stenosis. There is mild tricuspid regurgitation. Right ventricular systolic pressure is 32mmHg. Aortic Valve The aortic valve is trileaflet. There is mild aortic valve calcification. There is no aortic stenosis. Mild aortic regurgitation. Pulmonic Valve The pulmonic valve is normal in structure and function. Trace pulmonic valvular regurgitation. Great Vessels The aortic root is normal size. Pericardium/Pleural trivial pericardial effusion. Conclusion A two-dimensional transthoracic echocardiogram with M-mode and Doppler was performed. Left ventricular systolic function is low normal. Ejection Fraction = 50-55%. Post-op septal motion noted. The left atrium is moderately dilated. The Left Atrial Volume is 45 ml/m2. The right atrium is mildly dilated. S/P mitral valve repair with #32 Solano ring. 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 Mean gradient across the repaired MV is 3mmHg. There is no mitral valve stenosis. There is mild tricuspid regurgitation. Right ventricular systolic pressure is 32mmHg. Mild aortic regurgitation. Trace pulmonic valvular regurgitation. trivial pericardial effusion. Compared with 06/15/2016, MV has been repaired Final Reading Physician: Dr Lacey Perera electronically signed on 08/25/2016 09:31 AM Ordering Physician: Heather Martel Performed By: Charley Tillman
[2016-08-25] MEDS ORDERED: FUROSEMIDE 20 MG/2 ML VIAL IVP ONE (10:06)
[2016-08-25] MEDS: TAMSULOSIN HCL 0.4 MG CAP PO SCH (10:28)
[2016-08-25] MEDS: METOPROLOL TARTRATE 25 MG TAB PO SCH ×2 (10:28→21:05)
[2016-08-25] MEDS: SENNOSIDES/DOCUSATE SODIUM TAB PO SCH ×2 (10:29→21:05)
[2016-08-25] MEDS: AMIODARONE HCL 200 MG TAB PO SCH ×2 (10:29→21:05)
[2016-08-25] MEDS: PANTOPRAZOLE SODIUM 40 MG TAB PO SCH (10:30)
[2016-08-25] MEDS: PRAVASTATIN SODIUM 20 MG TAB PO SCH (10:30)
[2016-08-25] MEDS: ACETAMINOPHEN 325 MG TAB PO PRN ×2 (11:00→16:15)
[2016-08-25] MEDS: WARFARIN SODIUM 5 MG TAB PO SCH (16:15)
[2016-08-25] MEDS ORDERED: ALBUMIN 5% 500 ML IV ONE (18:29)
--- NOTE | 2016-08-25 19:57 | GCON ---
[f rep st] CONSULTATION INPATIENT CONSULTATION REFERRING PHYSICIAN: Connor Salcedo DO REASON FOR CONSULTATION: Throat pain. CHIEF COMPLAINT: Throat pain. HISTORY OF PRESENT ILLNESS: Please note much of this history was gathered by the primary referring team and medical record as the patient had some difficulty explaining his history. Patient is a 66-year-old male who was admitted under the cardiothoracic surgery service on 08/22/2016 for a planned mitral valve repair and Hamilton-Maze. Prior to this surgery, he denied any immediate throat pain; although, he reports last January, when he was quite ill , he had something similar. This was ultimately found to be a severe acid reflux and possibly some esophageal stenosis. He is primarily complaining of pain today; he was unable to elucidate any other problems. He was able to tell me that food seems to be going down, and he was cleared by Speech and Language Pathology by a bedside swallow to go ahead and take regular diet. He mostly complains of pain. When I asked him on the severity scale, 1-10, he was unable to provide a number, even after describing what might constitute a 1 or a 10 on the scale. He has a very remote history of smoking with a couple year history in his teens, but nothing more recently. Intraoperatively, he did have a right thoracotomy and had a complex mitral valve repair. He also has a prior history of a pacemaker. . PAST MEDICAL HISTORY: Includes atrial fibrillation, acid reflux, hyperlipidemia , pulmonary embolism, BPH, esophageal stenosis, sick sinus syndrome, and pericardial effusion with tamponade. PAST SURGICAL HISTORY: Includes pacemaker with AICD, pericardial window and esophageal dilation. SOCIAL HISTORY: He is a former smoker and rarely consumes alcohol. He is a salesman at [employer] MEDICATIONS: Include acetaminophen, acyclovir, budesonide, formoterol, omeprazole daily, tamsulosin, temazepam, Coumadin, and simvastatin. ALLERGIES: No known drug allergies. PHYSICAL EXAMINATION: CONSTITUTIONAL: Patient is awake, alert, alerted and in no apparent distress; however, multiple questions throughout this encounter required prompting, and ultimately in inability to be expressive in an articular manner. No hoarseness was noted HEENT: Pupils are equal and reactive to light. Extraocular muscles are intact. Bilateral ears are within normal limits. Anterior nasal rhinoscopy is clean. Oral cavity exam is unremarkable. NECK: A central line catheter in the right neck, and otherwise a supple neck without any adenopathy or mass. Trachea midline. Palpation over the hyoid, as well as the thyroid cartilage, did not reproduce any of the pain. His voice was clear. PROCEDURE: Flexible fiberoptic laryngoscopy was attempted with this patient multiple times. I anesthetized him and decongested him aggressively with topical 4% lidocaine as well as Afrin. Despite this, he was really unable to tolerate even a small presentation of the laryngoscope into his nasal cavity as he cited persistent pain. I did attempt a quick look transorally. I was able to determine that the vocal cords themselves appear to be pink and without any masses with bilateral mobility. There were no obvious tumors, injuries, ulcerations, infection, evidence of thrush or otherwise. Although, it should be noted that this was extraordinarily limited as I went through a transoral approach, and there was still some limited cooperation with the patient. IMPRESSION: Throat pain; differential diagnosis is broad. There are no gross abnormalities on my limited examination today. RECOMMENDATIONS: I do not think this patient will really tolerate another attempt at laryngoscopy. Considerations could be made for GI consultation given his past history, in which similar symptoms presented, and ultimately it was found to be a GERD issue. One could entertain empirically treating for fungal laryngitis as this can occur even in a relatively normal examination. His main risk factor would be his symbicort use. We will frequently use Diflucan 100 mg daily x 10 days. Another option would be empirically treating for some sort of viral etiology, such as a herpetic lesion, for which I did not see strong evidence. It is not clear to me why he is on acyclovir beforehand, but this could represent an option. Alternative imaing could include things like CT scans or modified barium swallows. Their utility at this point may or may not be of significant at this point; but, given his relatively limited ability to cooperate with the examination, again could be considered. Please call me with any further questions. /[id number]/MODL MTDD
[2016-08-25] MEDS: TEMAZEPAM 15 MG CAP PO SCH (22:45)
[2016-08-26] MEDS: traMADol 50 MG TAB PO PRN (03:37)
[2016-08-26 04:31] LABS: HEMATOCRIT 28.2 % (40.0-51.0); HEMOGLOBIN 9.8 g/dL (13.7-17.5); MEAN CELL HEMOGLOBIN CONCENTR. 34.8 g/dL (32.4-36.7); MEAN CELL VOLUME 86.2 fL (81.5-99.8); RED BLOOD CELL COUNT 3.27 10^6/uL (4.40-6.38); RED CELL DISTRIBUTION WIDTH 12.8 % (11.5-15.2)
[2016-08-26 04:42] LABS: ANION GAP 6 mEq/L (8-16); CALCIUM 8.3 mg/dL (8.5-10.4); CARBON DIOXIDE 27 mEq/l (22-31); CHLORIDE 96 mEq/L (97-110); CREATININE 0.7 mg/dL (0.7-1.3); GLOMERULAR FILTRATION RATE > 60; GLUCOSE 119 mg/dL (70-100); POTASSIUM 3.9 mEq/L (3.5-5.2); SODIUM 129 mEq/L (134-144)
[2016-08-26 04:43] LABS: INR 1.36 (0.83-1.16); PROTIME(PATIENT) 16.8 SEC (12.0-15.0)
[2016-08-26] MEDS ORDERED: SENNOSIDES/DOCUSATE SODIUM TAB PO PRN (07:43)
--- NOTE | 2016-08-26 07:52 | SOAPPROG ---
SOAP Progress Note Assessment/Plan: Assessment: POD#4 MICS complex MV repair w #32 Physio ring annuloplasty, left- sided Hamilton-Maze IV, oversew of the orifice of the ANDREAS. Sx severe MR - Amenable to complex repair via mini rt thoracotomy w peripheral CPB. Extubated in the OR. Tube and wires out. No significant volume overload. Antithrombotic prophylaxis as per Maze. PAF/chronically anticoagulated - s/p left-sided left-sided Hamilton-Maze IV. Predominant postop rhythm Apaced. Coumadin resumed at home dose. Existing INR parameters of 2-3 sufficient for valvular prophylaxis. Use of BB as allowed by BP. Adjunctive maintenance dose amio x 1 month. Presence of PPM - for hx of SSS. Function intact by postop interrogation. Acute expected blood loss anemia with thrombocytopenia - Stable. No transfusions required. VTE prophylaxis w Coumadin. Plt count rebound noted. Postoperative sore throat - Impairing oral intake. Hx esophageal strictures. No acute findings per ENT eval. Postoperative confusional state - Last 24hrs. Initially believed to be d/t narcs , most recently Tramadol. Worsened aphasia this am. Neuro consult pending. Plan: Hold all nonessential meds. Neuro eval. CT head. Ck LFTs. 08/26/16 07:49 Subjective: Found huddled in a chair, repeating "it's ok" over and over when questioned. Facies symmetric. Speech clear. MAEE. Objective: Vital Signs Temp Pulse Resp BP Pulse Ox 36.6 C 68 16 127/64 H 93 08/26/16 03:25 08/26/16 03:25 08/26/16 03:25 08/26/16 03:25 08/26/16 03:25 Laboratory Results 08/26/16 04:15 08/26/16 04:15 08/25/16 08/26/16 08/27/16 05:59 05:59 05:59 Intake Total 1610 1401 Output Total 790 1480 Balance 820 -79 PT 16.8 SEC (12.0-15.0) H 08/26/16 04:15 INR 1.36 (0.83-1.16) H 08/26/16 04:15 Echo yest low nl EF, no sig atrial dilatation, competent MV. Afeb. HR 60s-70s. Rhythm predom Apaced. Fluid boluses for relatively low BP yest pm. Ok overnoc. Almost off O2. CXR-> No PTX, no pulm vasc congestion, left basilar atelectasis. Balanced I/Os. Labs ok. INR slow to rise. Physical Exam - Physical Exam General Appearance: mild distress (Withdrawn until engaged, then startled and agitated until questioning stopped.), other (Responds to name) Respiratory: lungs clear (grossly ), other (mini rt thoracot CDI, slightly mounded) Cardiac/Chest: regular rate, rhythm Abdomen: soft Skin: warm/dry Extremities: other (no visible edema) ICD10 Worksheet Patient Problems: Problems Problem Status Onset Acute renal failure Acute Hyperkalemia Acute Pericardial effusion Acute Pulmonary embolism on left Acute Status post placement of cardiac pacemaker Acute Supratherapeutic INR Acute TIA (transient ischemic attack) Acute
[2016-08-26] MEDS: METOPROLOL TARTRATE 25 MG TAB PO SCH ×2 (08:40→20:05)
[2016-08-26] MEDS: TAMSULOSIN HCL 0.4 MG CAP PO SCH (08:40)
[2016-08-26] MEDS ORDERED: ACETAMINOPHEN 325 MG SUPP PR PRN ×2 (10:57→11:37)
[2016-08-26 11:14] LABS: ALBUMIN 3.1 g/dL (3.5-5.0); BILIRUBIN,TOTAL 1.4 mg/dL (0.1-1.4); BILIRUBIN-CONJUGATED 0.4 mg/dL (0.0-0.5); TOTAL PROTEIN 5.1 g/dL (6.3-8.2)
[2016-08-26] MEDS ORDERED: IOPAMIDOL (ISOVUE 370) 100 ML BTL IV ONE (12:06)
--- NOTE | 2016-08-26 12:14 | GCON ---
[f rep st] CONSULTATION NEUROLOGIC CONSULTATION REFERRING PHYSICIAN: Connor Salcedo DO HISTORY: The patient is a 66-year-old gentleman who I am asked to see in neurologic consultation re garding some abnormal behavior with confusion. He was admitted to the hospital on August 22. At that time, he was coming for mitral valve repair and Hamilton-Maze procedure. He has a history of atrial fib rillation, hyperlipidemia, pulmonary embolism, history of pericardial effusion, and sick sinus syndr ome. He had surgery performed on the with a complex mitral valve repair. He has a pacemaker. On the progress notes from postop, he was oriented and did not have any specific deficits. On August 24, tamara baldwin was generally feeling fairly well, complaining of some soreness in the throat. Yesterday, he was feeling well and was hoping to go home fairly soon. When he was seen for consultation in the latter part of the day yesterday, he was noted to be having trouble expressing himself in an articulate ma nner. When he was seen by Heather Martel this morning, he was noted to have some confusion with concern t hat this might be related to pain medications and maybe tramadol. The plan was to hold medications and request a neurology consult. The patient really cannot give a meaningful history right now as he appears to have an expressive ap hasia. He can answer some questions but initially really could not tell me why he was in the hospit al at all. He tries to communicate but tends to either babble with nonsensical words or has a hard time following my direct conversation. He has a tendency to perseverate with words as well as physi ángela actions. He was able to repeat some sentences partially, but he had trouble naming objects and again was demonstrating both expressive and receptive language impairment consistent with an aphasia . The patient is a former smoker but has not smoked for many years. No alcohol use. He is . PHYSICAL EXAMINATION: VITAL SIGNS: Blood pressure is 129/72. Pulse of 74. Respirations 18. Temp erature 37.7. GENERAL: The patient is well developed, in no acute distress. EYES: Clear. NECK: Supple with no bruits or masses. CARDIAC: Regular rate and rhythm. NEUROLOGIC: As outlined abov e, there appears to be expressive and receptive aphasia. He is struggling to try to communicate eff ectively and tends to perseverate and have illogical words and appears a little bit confused, but it is more consistent with an aphasia than an acute confusional state. Pupils 3 mm and reactive. Ext raocular movements are intact. There is some subtle facial asymmetry, but it is hard to tell whethe r there is distinct weakness or not. The motor exam reveals normal muscle bulk and tone without dis tinct focal weakness. He is not ataxic in the upper extremities. Reflexes 2+. LABORATORY: Lab shows some anemia with electrolytes revealing mild hyponatremia, currently 129. IN R 1.36. When he came to the hospital, he was on Coumadin. He is currently back on Coumadin. The a dmission INR was 1.05. IMPRESSION: The patient has evidence of expressive and receptive aphasia with concern for left midd le cerebral artery territory stroke more likely than acute confusion. With his history of atrial fi brillation and subtherapeutic INR prior to coming to the hospital, he was at risk for stroke and may have had an ischemic stroke on a cardioembolic basis. He cannot have an MRI, so we will obtain a h ead CT to look for any evidence of stroke and then have further recommendations. The NIH stroke sca le is 3. Total unit time and evaluation of 55 minutes. /[id number]/MODL
[2016-08-26] MEDS ORDERED: D5W 1,000 ML IV SCH (15:30)
[2016-08-26] MEDS ORDERED: HEPARIN 10,000 UNIT/10 ML MDV IVP PRN (15:41)
[2016-08-26] MEDS ORDERED: HEPARIN/DEXTROSE 500 ML IV SCH ×2 (15:45→19:45)
[2016-08-26] MEDS: WARFARIN SODIUM 5 MG TAB PO SCH (15:51)
[2016-08-26] MEDS: CALCIUM CARBONATE 500 MG CHEWABLE TAB PO PRN ×2 (16:24→20:05)
[2016-08-26 16:29] LABS: % IMMATURE GRANULYOCYTES 0.4 % (0.0-1.1); ABSOLUTE IMMATURE GRANULOCYTES 0.03 10^3/uL (0.00-0.10); ADD DIFF? NO; ADD MORPH? NO; ADD SCAN? NO; ATYPICAL LYMPHOCYTE FLAG 20 (0-99); FRAGMENT RBC FLAG 0 (0-99); HEMATOCRIT 28.3 % (40.0-51.0); HEMOGLOBIN 9.8 g/dL (13.7-17.5); LEFT SHIFT FLG 0 (0-99); LIPEMIA HEMOLYSIS FLAG 90 (0-99); MEAN CELL HEMOGLOBIN 29.7 pg (27.9-34.1); MEAN CELL HEMOGLOBIN CONCENTR. 34.6 g/dL (32.4-36.7); MEAN CELL VOLUME 85.8 fL (81.5-99.8); MEAN PLATELET VOLUME 9.4 fL (8.7-11.7); PLATELET CLUMPS FLAG 0 (0-99); PLATELET COUNT 122 10^3/uL (150-400); RED CELL DISTRIBUTION WIDTH 12.8 % (11.5-15.2)
[2016-08-26 16:41] LABS: APTT 31.4 SEC (23.0-38.0); INR 1.36 (0.83-1.16); PROTIME(PATIENT) 16.8 SEC (12.0-15.0)
[2016-08-26] MEDS ORDERED: KETOROLAC 30 MG/1 ML SDV IVP PRN (19:35)
[2016-08-26] MEDS ORDERED: NS 1,000 ML IV SCH (19:45)
[2016-08-26] MEDS: BUDESONIDE/FORMOTEROL 160/4.5 60 PUFFS/MDI IH PRN (23:57)
[2016-08-27] MEDS: ACETAMINOPHEN 325 MG TAB PO PRN (00:16)
[2016-08-27] MEDS: CEPACOL LOZENGE PO PRN (00:18)
[2016-08-27 05:01] LABS: INR 1.33 (0.83-1.16); PROTIME(PATIENT) 16.5 SEC (12.0-15.0)
[2016-08-27 05:08] LABS: ANION GAP 4 mEq/L (8-16); CALCIUM 8.5 mg/dL (8.5-10.4); CARBON DIOXIDE 25 mEq/l (22-31); CHLORIDE 98 mEq/L (97-110); CREATININE 0.7 mg/dL (0.7-1.3); GLOMERULAR FILTRATION RATE > 60; GLUCOSE 112 mg/dL (70-100); POTASSIUM 4.2 mEq/L (3.5-5.2); SODIUM 127 mEq/L (134-144)
[2016-08-27] MEDS: ENOXAPARIN 80 MG/0.8 ML SYR SC SCH ×2 (09:29→20:40)
[2016-08-27] MEDS: ASPIRIN 81 MG CHEWABLE TAB PO SCH (09:30)
[2016-08-27] MEDS: TAMSULOSIN HCL 0.4 MG CAP PO SCH (09:30)
[2016-08-27] MEDS: METOPROLOL TARTRATE 25 MG TAB PO SCH ×2 (09:30→20:41)
--- NOTE | 2016-08-27 10:39 | SOAPPROG ---
SOAP Progress Note Assessment/Plan: POD #5: MICS complex MV repair #22 Physio annuloplasty ring, left-sided Hamilton- Maze IV with ANDREAS exclusion Severe MR s/p complex MV repair with annuloplasty ring - Coumadin as per Hamilton-Maze x 3 months PAF s/p left-sided left-sided Hamilton-Maze IV - Coumadin, INR goal 2-3, duration dependent on rhythm - Lovenox bridge started today h/o SSS s/p PPM - Re-interogated post-op without issues AMS with confusion and hallucinations - Stoke w/u negative (CTs negative, MRI not possible d/t PPM) - Still c/o intermittent hallucinations and confused at times - neurology to reassess - No narcotics/tramadol/sleep aids - Continue close monitoring with supportive care Objective: Vital Signs Temp Pulse Resp BP Pulse Ox 36.9 C 78 17 109/64 95 08/27/16 08:00 08/27/16 08:00 08/27/16 03:50 08/27/16 08:00 08/27/16 08:00 Laboratory Results 08/26/16 16:15 08/27/16 04:32 08/26/16 08/27/16 08/28/16 05:59 05:59 05:59 Intake Total 1401 700 250 Output Total 1480 675 225 Balance -79 25 25 PT 16.5 SEC (12.0-15.0) H 08/27/16 04:32 INR 1.33 (0.83-1.16) H 08/27/16 04:32 Physical Exam - Physical Exam General Appearance: no apparent distress EENT: normal ENT inspection Neck: normal inspection Respiratory: No respiratory distress Cardiac/Chest: regular rate, rhythm, other (AP) Abdomen: non-tender, soft, No distended Skin: normal color, warm/dry Extremities: No pedal edema Neuro/Psych: cognition abnormalities, speech abnormalities (slow), disoriented to place ([facility]), disoriented to time (2015), No disoriented to person ICD10 Worksheet Patient Problems: Problems Problem Status Onset Acute renal failure Acute Hyperkalemia Acute Pericardial effusion Acute Pulmonary embolism on left Acute Status post placement of cardiac pacemaker Acute Supratherapeutic INR Acute TIA (transient ischemic attack) Acute
--- NOTE | 2016-08-27 10:52 | NEUROPROG ---
Assessment: Today's unit time was 25 minutes with [id number] time in review of information with his providers. At this point, we did not find stroke on imaging, therefore I think we are dealing with a nonspecific, multifactorial encephalopathy. Psychoactive drugs have been eliminated. I do not think he has cerebral ischemia. For now, we continue supportive care until this delirium clears. Hopefully he will be back to his true baseline very soon. I would like to avoid adding antipsychotic drugs if at all possible. Subjective: I am seeing the patient today for follow-up evaluation. He continues to have some fluctuations in his mental status with periods of hallucinations or some delusional thinking. He explains that he will visualize cartoons stream against the wall and talks about seeing a play as if he is in a winery. He says this is happening quite frequently although not at the moment. This has been the pattern witnessed by his nurse, and various providers. Had mentioned drinking alcohol and a large volume, but his says that absolutely is not true to the best of her knowledge. She believes he might drink glass of wine in the evenings but not the mention of gin on a daily basis. He is not complaining of any particular pain today. He denies headache. She says that he has been a little bit impulsive and is not always regularly following commands. Objective: Vital Signs Temp Pulse Resp BP Pulse Ox 36.9 C 78 17 109/64 95 08/27/16 08:00 08/27/16 08:00 08/27/16 03:50 08/27/16 08:00 08/27/16 08:00 Laboratory Results 08/26/16 16:15 08/27/16 04:32 08/26/16 08/27/16 08/28/16 05:59 05:59 05:59 Intake Total 1401 700 250 Output Total 1480 675 225 Balance -79 25 25 PT 16.5 SEC (12.0-15.0) H 08/27/16 04:32 INR 1.33 (0.83-1.16) H 08/27/16 04:32 He is alert and attentive but does talk about these hallucinations or delusions as outlined above. He is not tremulous and appears comfortable. Is oriented to his location but did not know the month initially. He said the year was 2015. he knows the name of his physicians. I do not have any focal findings on exam. He might have occasional word-finding difficulties but no longer seems to have a true aphasia. Allergies/Adverse Reactions: hydrocodone Allergy (Severe, Verified 08/26/16 08:45) Other-Enter Comments tramadol Allergy (Severe, Verified 08/26/16 08:47) Other-Enter Comments
[2016-08-27 11:13] LABS: COLOR YELLOW; LEUKOCYTE ESTERASE,URINE NEGATIVE (NEGATIVE); NITRITE,URINE NEGATIVE (NEGATIVE)
[2016-08-27] MEDS: WARFARIN SODIUM 5 MG TAB PO SCH (16:49)
[2016-08-28 04:35] LABS: INR 1.4 (0.83-1.16); PROTIME(PATIENT) 17.1 SEC (12.0-15.0)
[2016-08-28 04:52] LABS: ANION GAP 8 mEq/L (8-16); CALCIUM 8.4 mg/dL (8.5-10.4); CARBON DIOXIDE 25 mEq/l (22-31); CHLORIDE 100 mEq/L (97-110); CREATININE 0.7 mg/dL (0.7-1.3); GLOMERULAR FILTRATION RATE > 60; GLUCOSE 99 mg/dL (70-100); SODIUM 133 mEq/L (134-144)
[2016-08-28 07:59] VITALS: BP 118/73; PULSE 81; RESP 17; TEMP 97.9
--- NOTE | 2016-08-28 08:01 | SOAPPROG ---
SOAP Progress Note Assessment/Plan: POD #6: MICS complex MV repair #22 Physio annuloplasty ring, left-sided Hamilton- Maze IV with ANDREAS exclusion Severe MR s/p complex MV repair with annuloplasty ring - Coumadin as per Hamilton-Maze x 3 months PAF s/p left-sided left-sided Hamilton-Maze IV - Coumadin, INR goal 2-3, duration dependent on rhythm - Lovenox bridge until therapeutic h/o SSS s/p PPM - Re-interogated post-op without issues AMS with confusion and hallucinations, improved - Stoke w/u negative (CTs negative, MRI not possible d/t PPM) - No narcotics/tramadol/sleep aids - Continue supportive care Subjective: Feels better. Wants to go home where is (SCANNING CLERK) will take care of him. Objective: Vital Signs Temp Pulse Resp BP Pulse Ox 36.6 C 81 17 118/73 94 08/28/16 07:59 08/28/16 07:59 08/28/16 07:59 08/28/16 07:59 08/28/16 07:59 Laboratory Results 08/26/16 16:15 08/28/16 03:47 08/27/16 08/28/16 08/29/16 05:59 05:59 05:59 Intake Total 1658 1100 Output Total 675 1075 Balance 983 25 PT 17.1 SEC (12.0-15.0) H 08/28/16 03:47 INR 1.40 (0.83-1.16) H 08/28/16 03:47 Physical Exam - Physical Exam General Appearance: WD/WN, alert, no apparent distress EENT: normal ENT inspection Neck: normal inspection Respiratory: No respiratory distress Cardiac/Chest: regular rate, rhythm Abdomen: non-tender, soft, No distended Skin: normal color, warm/dry Extremities: No pedal edema Neuro/Psych: no motor/sensory deficits, alert, normal mood/affect, oriented x 3 ICD10 Worksheet Patient Problems: Problems Problem Status Onset Acute renal failure Acute Hyperkalemia Acute Pericardial effusion Acute Pulmonary embolism on left Acute Status post placement of cardiac pacemaker Acute Supratherapeutic INR Acute TIA (transient ischemic attack) Acute
[2016-08-28] MEDS: ENOXAPARIN 80 MG/0.8 ML SYR SC SCH (08:16)
[2016-08-28] MEDS: TAMSULOSIN HCL 0.4 MG CAP PO SCH (08:17)
[2016-08-28] MEDS: ASPIRIN 81 MG CHEWABLE TAB PO SCH (08:17)
[2016-08-28] MEDS: METOPROLOL TARTRATE 25 MG TAB PO SCH (08:17)
[2016-08-28 09:55] VITALS: O2SAT 92
--- NOTE | 2016-08-28 10:00 | PDDCSUM ---
Discharge Summary Discharge Summary: ADMISSION DATE: 08/22/16 DISCHARGE DATE: 08/28/16 ADMISSION DX: 1. Severe mitral valve insufficiency 2. Paroxysmal atrial fibrillation 3. h/o sick sinus syndrome s/p PPM DISCHARGE DX: 1. Severe mitral valve insufficiency 2. Paroxysmal atrial fibrillation 3. h/o sick sinus syndrome s/p PPM 4. Altered mental status, resolved PROCEDURES 08/22/16, Connor Salcedo: 1. Minimally invasive complex MV repair with chordal reconstruction to A1 and # 32 Physio annuloplasty and CPB access through right femoral artery and vein. 2. Left-sided Hamilton-Maze IV with cryoablation via right anterior thoracotomy HOSPITAL COURSE BY PROBLEM LIST 1. Severe mitral valve insufficiency - s/p complex repair with post-op ECHO revealing resolution of MV insufficiency. Coumadin as per Hamilton-Maze, duration 3 months. 2. Paroxysmal atrial fibrillation - s/p Hamilton-Maze IV with post-op atrial-paced and sinus rhythms. Home Coumadin dose continued (INR goal 2-3) with Lovenox bridge. Duration of thromboprophylaxis pending stability of rhythm. 3. h/o sick sinus syndrome s/p PPM - PPM reinterrogated post-operatively and functioning well. 4. Altered mental status - post-operative periods of hallucinations and confusion with negative CVA workup and almost complete resolution on discharge. CONDITION Good DISPOSITION Home, self-care ACTIVITY Pt was instructed on sternal precautions, activity limitations, and which problems to call [facility] with. Please see Discharge Plan in chart for specifics. D/C MEDICATIONS 1. Acetaminophen [Tylenol ES 500 mg (*)] 250 mg PO BID PRN 2. Acyclovir [Zovirax 400 mg (*)] 400 mg PO BID PRN 3. Budesonide/Formoterol 160/4.5 [Symbicort 160-4.5 Mcg Inh (*)] 1 puffs IH BID PRN 4. Omeprazole 40 mg PO DAILY 5. Tamsulosin HCl [Flomax 0.4 MG (*)] 0.4 mg PO DAILY 6. Aspirin [Aspirin 81mg (*)] 81 mg PO DAILY 7. Enoxaparin [Lovenox 80 MG (*)] 70 mg SC BID 8. Ibuprofen [Motrin (*)] 600 mg PO QID PRN 9. Metoprolol Tartrate [Lopressor 25 mg (*)] 12.5 mg PO BID 10. Warfarin Sodium 5 mg PO EVERY OTHER DAY 11. Warfarin Sodium [Coumadin 7.5MG (*)] 7.5 mg PO MWF PENDING STUDIES/LABS 1. CXR prior to surgical f/u 2. Daily INR at [facility] until INR therapeutic (discussed with pt's ) F/U APPOINTMENTS 1. Connor Salcedo - 09/01/16, 10:00 AM
[2016-08-28] MEDS ORDERED: WARFARIN SODIUM 5 MG TAB PO ONE (12:00)
== END 2016-08-28 14:16 | disposition home or self-care (01) | DRG 221 ==
LOC: F3N 08-22 05:44 → F2N 08-22 07:17 → F2W 08-23 09:54
PROVIDERS: ADMIT Thoracic Surgery (Cardiothoracic Vascular Surgery); ATTEND Thoracic Surgery (Cardiothoracic Vascular Surgery)
PROC: 5A1221Z Performance of Cardiac Output, Continuous (ICD-10-PCS; principal; 2016-08-22 07:15)
PROC: 02UG0JZ Supplement Mitral Valve with Synthetic Substitute, Open Approach (ICD-10-PCS; principal; 2016-08-22 07:15)
PROC: 02583ZZ Destruction of Conduction Mechanism, Percutaneous Approach (ICD-10-PCS; principal; 2016-08-22 07:15)
DX: I34.0 Nonrheumatic mitral (valve) insufficiency (principal); I48.0 Paroxysmal atrial fibrillation; R41.82 Altered mental status, unspecified; K21.9 Gastro-esophageal reflux disease without esophagitis; E78.5 Hyperlipidemia, unspecified; Z95.810 Presence of automatic (implantable) cardiac defibrillator; Z86.711 Personal history of pulmonary embolism; Z96.643 Presence of artificial hip joint, bilateral
CPT/HCPCS: 82947-QW; 85520-90; 92526-GN; 92610-GN; 97112-GP; 97116-GP; 97161-GP; 97165-GO; 97535-GO; G8978-GP-CI; G8978-GP-CK; G8979-GP-CI; G8980-GP-CI; G8987-GO-CK; G8988-GO-CI; G8996-GN-CI; G8997-GN-CI; G8998-GN-CI; J0153; J0282; J0690; J1100; J1265; J1644; J1650; J1815; J1885; J2001; J2150; J2250; J2260; J2370; J2405; J2704; J2720; J2765; J2930; J3010; J7060; P9041; Q9967

== ENCOUNTER → 2016-09-01 | Outpatient (CLI) | payer OTHER, MEDICARE | LOC: FIMAGING 09:44 | PROVIDERS: ATTEND Thoracic Surgery (Cardiothoracic Vascular Surgery) | DX: J98.11 Atelectasis (principal); Z98.890 Other specified postprocedural states; Z95.0 Presence of cardiac pacemaker ==

== ENCOUNTER 2017-03-22 07:09 | Inpatient (IN) | payer OTHER, MEDICARE ==
[~2017-03-22 07:09] MED LIST: LIDOCAINE 1% 5 ML SDV ID PRN; ceFAZolin 2 GM/SWFI 2 GM/20 ML SYR IVP ONE
--- NOTE | 2017-03-22 07:37 | PDGENHP ---
History and Physical - Chief Complaint Right lung herniation - History of Present Illness 67 yo male with hx of MICS MVrpr 7 mo ago evaluated in clinic 2 mo ago for ballooning of right thoracotomy incisional site with valsalva maneuvers. Onset shortly after upper body weight lifting program started. Believed to have a large incisional hernia with reducible lung protrusion. No assoc respiratory compromise or perceivable functional limitations. Has continued to lift weights but with lightened resistance. Admitted now for elective hernia repair. History Information - Allergies/Home Medication List Allergies/Adverse Reactions: hydrocodone Allergy (Severe, Verified 03/22/17 07:35) Other-Enter Comments tramadol Allergy (Severe, Verified 03/22/17 07:35) Other-Enter Comments Home Medications: Acetaminophen [Tylenol ES 500 mg (*)] 500 mg PO BID PRN 08/20/16 [Last Taken 08/31 18:00] Acyclovir [Zovirax 400 mg (*)] 400 mg PO BID PRN 08/20/16 [Last Taken 08/17/16] Tamsulosin HCl [Flomax 0.4 MG (*)] 0.8 mg PO HS 08/20/16 [Last Taken 03/21/17 18 :00] Ibuprofen [Motrin (*)] 200 mg PO DAILY PRN 03/07/17 [Last Taken Unknown] Omeprazole [Prilosec 20 mg] 20 mg PO BID 03/07/17 [Last Taken 03/21/17 18:00] QUEtiapine FUMARATE [Seroquel 25 mg (*)] 25 mg PO HS 03/07/17 [Last Taken 21:00] Warfarin Sodium 5 mg PO TUTH@16 03/07/17 [Last Taken 03/17/17] Warfarin Sodium [Coumadin 7.5MG (*)] 7.5 mg PO SUMOWEFRSA@16 03/07/17 [Last Taken 03/17/17] I have personally reviewed and updated: medical history, surgical history - Past Medical History atrial fibrillation, GERD, hyperlipidemia, pulmonary embolism (severe mr) Additional medical history: altered mental status (hallucinations, confusion) post anesthesia with pronounced sensitivity to narcs, severe MR, BPH, esophageal stenosis, sick sinus syndrome, pericardial effusion with tamponade - Surgical History Reports: pacemaker/AICD Additional surgical history: Complex MV rpr and left sided AF ablation with cryo via rt thoracotomy with rt fem fem CPB on 08/22/16. perciardial window, esophageal dilation - Social History Smoking Status: Former smoker Review of Systems Review of Systems: Constitutional: Reports: no symptoms EENMT: Reports: no symptoms Cardiac: Reports: no symptoms Respiratory: Reports: no symptoms Genitourinary: Reports: no symptoms Muscolosketal: Reports: no symptoms Skin: Reports: no symptoms Neurological: Reports: no symptoms Hematologic/Lymphatic: Reports: no symptoms Immunologic/Allergy: Reports: no symptoms Physical Exam Physical Exam: Constitutional: no apparent distress, appears nourished Eyes: anicteric sclera Ears, Nose, Mouth, Throat: moist mucous membranes Cardiovascular: regular rate and rhythym Peripheral Pulses: 2+: dorsalis-pedis (R), dorsalis-pedis (L) Respiratory: clear to auscultation, other (anterolateral rt pec engorgement with deep breath or valsalva) Gastrointestinal: soft, non-tender abdomen Genitourinary: no bladder fullness Skin: warm, normal color, no rashes or abrasions Musculoskeletal: other (symmetric tone) Psychiatric: interacting appropriately, not anxious Lab Data & Imaging Review 03/22/17 07:30 Assessment & Plan Assessment: Incisional hernia of rt thoracotomy site Plan: Herniorrhaphy with mesh. Consents per Dr Salcedo.
[2017-03-22] MEDS ORDERED: LIDOCAINE 1% 2 ML INJ ID PRN (07:49)
[2017-03-22] MEDS ORDERED: LR 1,000 ML IV ONE (07:49)
[2017-03-22 07:52] LABS: % IMMATURE GRANULYOCYTES 0.4 % (0.0-1.1); ABSOLUTE IMMATURE GRANULOCYTES 0.02 10^3/uL (0.00-0.10); ADD DIFF? NO; ADD MORPH? NO; ADD SCAN? NO; ATYPICAL LYMPHOCYTE FLAG 10 (0-99); FRAGMENT RBC FLAG 0 (0-99); HEMATOCRIT 41.5 % (40.0-51.0); HEMOGLOBIN 13.9 g/dL (13.7-17.5); LEFT SHIFT FLG 0 (0-99); LIPEMIA HEMOLYSIS FLAG 80 (0-99); MEAN CELL HEMOGLOBIN 27.1 pg (27.9-34.1); MEAN CELL HEMOGLOBIN CONCENTR. 33.5 g/dL (32.4-36.7); MEAN CELL VOLUME 80.9 fL (81.5-99.8); MEAN PLATELET VOLUME 8.7 fL (8.7-11.7); PLATELET CLUMPS FLAG 0 (0-99); PLATELET COUNT 190 10^3/uL (150-400); RED BLOOD CELL COUNT 5.13 10^6/uL (4.40-6.38); RED CELL DISTRIBUTION WIDTH 14.8 % (11.5-15.2)
[2017-03-22 08:09] LABS: INR 1.11 (0.83-1.16); PROTIME(PATIENT) 14.5 SEC (12.0-15.0)
[2017-03-22 08:10] LABS: APTT 29.8 SEC (23.0-38.0)
[2017-03-22] MEDS ORDERED: ACYCLOVIR 400 MG TAB PO PRN (08:16)
[2017-03-22] MEDS ORDERED: MIDAZOLAM 2 MG/2 ML VIAL IVP ONE (08:17)
--- NOTE | 2017-03-22 08:17 | PDANEPAE ---
ANE History of Present Illness 67 yo for thoracotomy hernia repair ANE Past Medical History - Cardiovascular History Hx Hypertension: No Hx Arrhythmias: Yes Hx Chest Pain: No Hx Coronary Artery / Peripheral Vascular Disease: Yes Hx CHF / Valvular Disease: Yes Hx Palpitations: No Cardiovascular History Comment: 08/22/16 MVR/ Maze procedure with Matias. PAROXYSMAL AFIB. SICK SINUS SYNDROME. CAD. HYPERLIPIDEMIA. MITRAL REGURGITATION. PERICARDIAL EFFUSION WITH CARDIAC TAMPONADE - Pulmonary History Hx COPD: No Hx Asthma/Reactive Airway Disease: No Hx Recent Upper Respiratory Infection: No Hx Oxygen in Use at Home: No Hx Sleep Apnea: No Sleep Apnea Screening Result - Last Documented: Positive Pulmonary History Comment: RAOUL POSITIVE. PE - Neurologic History Hx Cerebrovascular Accident: Yes Hx Seizures: No Hx Dementia: No Neurologic History Comment: TIA. HX OF SPINAL SURG - Endocrine History Hx Diabetes: No - Renal History Hx Renal Disorders: No - Liver History Hx Hepatic Disorders: No - Neurological & Psychiatric Hx Hx Neurological and Psychiatric Disorders: Yes Neurological / Psychiatric History Comment: ANXIETY. DEPRESSION - Cancer History Hx Cancer: No - Congenital Disorder History Hx Congenital Disorders: No - GI History Hx Gastrointestinal Disorders: Yes Gastrointestinal History Comment: REFLUX. HX OF ESOPHAGEAL DILATION - Other Health History Other Health History: wears glasses - Chronic Pain History Chronic Pain: No - Surgical History Prior Surgeries: 08/22/16 MVR/ MAZE with Matias. 06/15/16 STATION MASTER. PACEMAKER PLACED 01/25/16. ESOPHAGEAL DILATION 2015. LEFT KUSH 2007. RIGHT KUSH 2008. SPINAL SURGERY. ACL REPAIR ANE Review of Systems Review of Systems: - Exercise capacity METS (RN): 3 METS - Pacemaker Pacemaker Type: Bi-Ventricular, Permanent Pacer/Defib Pacemaker Cad Administrator: [employer] [facility] Pacemaker Model: PM 2240 Pacemaker Mode: DDDR Pacemaker Set Rate: 70 Date Pacemaker Last Checked: 01/04/17 ANE Patient History - Allergies Allergies/Adverse Reactions: hydrocodone Allergy (Severe, Verified 03/22/17 07:35) Other-Enter Comments tramadol Allergy (Severe, Verified 03/22/17 07:35) Other-Enter Comments - Home Medications Home medications: home medication list seen and reviewed Home Medications: Acetaminophen [Tylenol ES 500 mg (*)] 500 mg PO BID PRN 08/20/16 [Last Taken 08/31 18:00] Acyclovir [Zovirax 400 mg (*)] 400 mg PO BID PRN 08/20/16 [Last Taken 08/17/16] Tamsulosin HCl [Flomax 0.4 MG (*)] 0.8 mg PO HS 08/20/16 [Last Taken 03/21/17 18 :00] Ibuprofen [Motrin (*)] 200 mg PO DAILY PRN 03/07/17 [Last Taken Unknown] Omeprazole [Prilosec 20 mg] 20 mg PO BID 03/07/17 [Last Taken 03/21/17 18:00] QUEtiapine FUMARATE [Seroquel 25 mg (*)] 25 mg PO HS 03/07/17 [Last Taken 21:00] Warfarin Sodium 5 mg PO TUTH@16 03/07/17 [Last Taken 03/17/17] Warfarin Sodium [Coumadin 7.5MG (*)] 7.5 mg PO SUMOWEFRSA@16 03/07/17 [Last Taken 03/17/17] - NPO status NPO Status: no food or drink >8 hours NPO Since - Liquids (Date): 03/21/17 NPO Since - Liquids (Time): 18:00 NPO Since - Solids (Date): 03/21/17 NPO Since - Solids (Time): 18:00 - Smoking Hx Smoking Status: Former smoker - Family Anes Hx Family Hx Anesthesia Complications: none ANE Labs/Vital Signs - Labs Result Diagrams: 03/22/17 07:30 - Vital Signs Blood Pressure: 130/89 Heart Rate: 64 Respiratory Rate: 16 O2 Sat (%): 95 Height: 5 ft 8 in Weight: 68.039 kg ANE Physical Exam - Airway Neck exam: FROM Mallampati Score: Class 2 Mouth exam: normal dental/mouth exam - Pulmonary Pulmonary: no respiratory distress - Cardiovascular Cardiovascular: regular rate and rhythym - ASA Status ASA Status: III ANE Anesthesia Plan Anesthesia Plan: general endotracheal anesthesia
[2017-03-22] MEDS ORDERED: PROPOFOL/EMULSION 500 MG/50 ML BOTTLE IV ONE (08:27)
[2017-03-22] MEDS ORDERED: fentaNYL 100 MCG/2 ML INJ ONE ×3 (08:27→10:47)
[2017-03-22] MEDS ORDERED: BUPIVACAINE 0.25% 30 ML SDV ONE (08:41)
[2017-03-22] MEDS ORDERED: ceFAZolin 2 GM/SWFI 20 ML SYR IVP ONE (08:45)
[2017-03-22] MEDS ORDERED: PROPOFOL 200 MG/20 ML VIAL ONE (09:58)
[2017-03-22] MEDS ORDERED: SUGAMMADEX SODIUM 200 MG/2 ML VIAL IVP ONE (10:20)
[2017-03-22] MEDS ORDERED: NALOXONE HCL 0.4 MG/ML INJ IVP PRN (10:26)
[2017-03-22] MEDS ORDERED: ONDANSETRON 4 MG/2 ML VIAL IVP PRN (10:26)
[2017-03-22] MEDS ORDERED: KETOROLAC 30 MG/1 ML SDV ONE (10:33)
[2017-03-22] MEDS ORDERED: HYDROmorphONE/DILAUDID 1 MG/ML INJ ONE (10:47)
[2017-03-22] MEDS: HYDROmorphONE/DILAUDID 1 MG/ML INJ IVP PRN ×4 (10:49→11:22)
[2017-03-22] MEDS: fentaNYL 100 MCG/2 ML INJ IVP PRN ×4 (10:49→11:22)
--- NOTE | 2017-03-22 10:59 | POSTANESTH ---
Post Anesthetic Evaluation Cardiovascular Status: Normal, Stable Respiratory Status: Normal, Stable Level of Consciousness/Mental Status: Mildly Sleepy, Arousable Pain Control: Adequate, Prn Tx Ordered Nausea/Vomiting Control: Adequate, Prn Tx Ordered Complications Possibly Related to Anesthesia: None Noted
[2017-03-22] MEDS: ACETAMINOPHEN 500 MG TAB PO PRN ×2 (13:19→20:20)
[2017-03-22] MEDS: HEPARIN 5,000 UNIT/0.5 ML SYR SC SCH ×2 (13:19→21:47)
--- NOTE | 2017-03-22 13:33 | GOP ---
[f rep st] OPERATIVE REPORT DATE OF OPERATION: 03/22/2017 SURGEON: Connor Salcedo DO LNA: Heather Martel PA-C ANESTHESIOLOGIST: Rosa Pozo MD PREOPERATIVE DIAGNOSIS: Lung herniation from previous thoracotomy. POSTOPERATIVE DIAGNOSIS: Lung herniation from previous thoracotomy. PROCEDURE PERFORMED: Re-exploration right thoracotomy with mesh reinforcement of hernia. FINDINGS: DESCRIPTION OF PROCEDURE: The patient was brought to the operating room with a herniation from previ ous right thoracotomy for mitral valve repair. The previous incision was incised down to the chest w all. There was an obvious hernia sac with 2 defects at approximately the 3rd and 4th interspaces louis suring 5 and 7 cm long. The sutures had torn through. For that reason, 2 mesh were placed in the ea ch defect and closed with interrupted #1 Vicryl sutures with distention of the lungs with positive pr essure. There was no further herniation. A single chest tube was placed in the posterior gutter. M uscle approximation and wound closure were performed in the standard fashion. 0.25% Marcaine with epi nephrine was used to infiltrate the intercostal spaces. Dressings were applied, as was a Pleur-evac. The patient was returned to the recovery room in stable condition. /[id number]/MODL
[2017-03-22] MEDS ORDERED: KETOROLAC 15 MG/1 ML SDV IVP SCH (16:00)
[2017-03-22] MEDS ORDERED: WARFARIN SODIUM 7.5 MG TAB PO SCH (16:00)
[2017-03-22] MEDS ORDERED: fentaNYL 12 MCG PATCH TD SCH (16:00)
[2017-03-22] MEDS: KETOROLAC 30 MG/1 ML SDV IVP PRN ×2 (16:54→23:03)
[2017-03-22] MEDS: ceFAZolin 2 GM/DEXTROSE 100 ML IV SCH (18:08)
[2017-03-22] MEDS: PANTOPRAZOLE SODIUM 40 MG TAB PO SCH (20:10)
[2017-03-22] MEDS ORDERED: TAMSULOSIN HCL 0.4 MG CAP PO SCH (21:00)
[2017-03-22] MEDS ORDERED: QUEtiapine FUMARATE 25 MG TAB PO SCH (21:00)
[2017-03-23] MEDS: ceFAZolin 2 GM/DEXTROSE 100 ML IV SCH (00:52)
[2017-03-23 05:19] LABS: HEMOGLOBIN 11.3 g/dL (13.7-17.5)
[2017-03-23 05:27] LABS: ANION GAP 8 mEq/L (8-16); CALCIUM 8.5 mg/dL (8.5-10.4); CARBON DIOXIDE 24 mEq/l (22-31); CHLORIDE 102 mEq/L (97-110); GLOMERULAR FILTRATION RATE > 60; GLUCOSE 124 mg/dL (70-100); POTASSIUM 4.2 mEq/L (3.5-5.2); SODIUM 134 mEq/L (134-144)
[2017-03-23 05:29] LABS: INR 1.14 (0.83-1.16); PROTIME(PATIENT) 14.8 SEC (12.0-15.0)
[2017-03-23] MEDS: KETOROLAC 30 MG/1 ML SDV IVP PRN (05:47)
[2017-03-23] MEDS: HEPARIN 5,000 UNIT/0.5 ML SYR SC SCH (06:16)
--- NOTE | 2017-03-23 07:12 | SOAPPROG ---
SOAP Progress Note Assessment/Plan: POD #1: Re-exploration right thoracotomy with mesh reinforcement of hernia Lung herniation s/p right thoracotomy s/p repair with mesh - CT out this morning - Home this afternoon Acute blood loss anemia - Stable without blood transfusions Subjective: Denies pain or SOB. Objective: Vital Signs Temp Pulse Resp BP Pulse Ox 36.8 C 71 19 119/73 96 03/23/17 04:00 03/23/17 04:00 03/23/17 04:00 03/23/17 04:00 03/23/17 04:00 Laboratory Results 03/23/17 04:03 03/23/17 04:03 03/22/17 03/23/17 03/24/17 05:59 05:59 05:59 Intake Total 2120 Output Total 721 Balance 1399 PT 14.8 SEC (12.0-15.0) 03/23/17 04:03 INR 1.14 (0.83-1.16) 03/23/17 04:03 Physical Exam - Physical Exam General Appearance: WD/WN, alert, no apparent distress EENT: No scleral icterus (R), No scleral icterus (L) Neck: normal inspection Respiratory: No respiratory distress Cardiac/Chest: regular rate, rhythm Abdomen: non-tender, soft, No distended Skin: normal color, warm/dry Extremities: No pedal edema Neuro/Psych: no motor/sensory deficits, alert, normal mood/affect, oriented x 3 ICD10 Worksheet Patient Problems: Problems Problem Status Onset Incisional hernia Acute S/P herniorrhaphy Acute ~03/22/17 Status post placement of cardiac pacemaker Chronic
[2017-03-23] MEDS: PANTOPRAZOLE SODIUM 40 MG TAB PO SCH (07:59)
[2017-03-23] MEDS: ACETAMINOPHEN 500 MG TAB PO PRN (07:59)
[2017-03-23 08:22] VITALS: BP 116/68; PULSE 75; RESP 18; TEMP 97.4; O2SAT 93
[2017-03-23] MEDS ORDERED: IBUPROFEN 600 MG TAB PO PRN (09:50)
--- NOTE | 2017-03-23 10:36 | PDDCSUM ---
Discharge Summary Discharge Summary: ADMISSION DATE: 03/22/17 DISCHARGE DATE: 03/23/17 DISCHARGE DX: 1. Right lung herniation 2. Acute blood loss anemia PROCEDURES 03/22/17, Connor Salcedo: 1. Re-exploration right thoracotomy with mesh reinforcement of hernia HOSPITAL COURSE BY PROBLEM LIST 1. Right lung herniation - s/p repair with mesh. 2. Acute blood loss anemia - stable without the need for transfusions. CONDITION Good DISPOSITION Home ACTIVITY Pt was instructed on sternal precautions, activity limitations, and which problems to call [facility] with. Please see Discharge Plan in chart for specifics. DISCHARGE MEDICATIONS 1. Acyclovir [Zovirax 400 mg (*)] 400 mg PO BID PRN 2. Tamsulosin HCl [Flomax 0.4 MG (*)] 0.8 mg PO HS 3. Ibuprofen [Motrin (*)] 200 mg PO DAILY PRN 4. Omeprazole [Prilosec 20 mg] 20 mg PO BID 5. QUEtiapine FUMARATE [Seroquel 25 mg (*)] 25 mg PO HS 6. Warfarin Sodium 5 mg PO TUTH@16 7. Warfarin Sodium [Coumadin 7.5MG (*)] 7.5 mg PO SUMOWEFRSA@16 8. Acetaminophen [Tylenol ES 500 mg (*)] 500 mg PO BID PRN 9. Ibuprofen [Motrin (*)] 600 mg PO Q6HRS PRN PENDING STUDIES/LABS 1. CXR prior to follow-up F/U APPOINTMENTS 1. Connor Salcedo - 03/30/17, 10:00 AM
[2017-03-23] MEDS: CEPACOL LOZENGE PO PRN ×2 (10:37→15:57)
[2017-03-23] MEDS ORDERED: WARFARIN SODIUM 5 MG TAB PO SCH (16:00)
--- NOTE | 2017-03-24 16:51 | ASDISCHSUM ---
Discharge Information Plan Status:Home with No Needs Medically Cleared to Leave:03/22/2017 Discharge Date:03/23/2017 04:33 PM CM D/C Disposition: ADT D/C Disposition:Home, Routine, Self-Care Projected Discharge Date:03/23/2017 12:00 AM Transportation at D/C: Discharge Delay Reason: Follow-Up Date:03/23/2017 12:00 AM Discharge Slot: Final Diagnosis: Placement Information Patient Contact Information Contact Name:PRATEEK Relationship: Address:[address] [place] [address] City:[place] Alternate Phone: [facility]/Zip Code:[place] [address] Email: Financial Information Financial Class:MC Primary Plan Desc:MEDICARE INPATIENT Primary Plan Number:[id number] Secondary Plan Desc:[employer]/MDR SUPPLEMENT Secondary Plan Number:[id number] Assessment Information Intervention Information
== END 2017-03-23 16:33 | disposition home or self-care (01) | DRG 164 ==
LOC: F2N 07:09 → F2W 12:17
PROVIDERS: ADMIT Thoracic Surgery (Cardiothoracic Vascular Surgery); ATTEND Thoracic Surgery (Cardiothoracic Vascular Surgery)
PROC: 0WU80JZ Supplement Chest Wall with Synthetic Substitute, Open Approach (ICD-10-PCS; principal; 2017-03-22 08:30)
DX: J98.59 Other diseases of mediastinum, not elsewhere classified (principal); D62 Acute posthemorrhagic anemia; I48.91 Unspecified atrial fibrillation; K21.9 Gastro-esophageal reflux disease without esophagitis; E78.5 Hyperlipidemia, unspecified; G47.33 Obstructive sleep apnea (adult) (pediatric); Z86.711 Personal history of pulmonary embolism; Z87.891 Personal history of nicotine dependence; Z95.810 Presence of automatic (implantable) cardiac defibrillator
CPT/HCPCS: C1781; J0171; J0690; J1170; J1885; J2250; J2704; J3010

== ENCOUNTER → 2017-03-30 | Outpatient (CLI) | payer OTHER, MEDICARE | LOC: FLAB 09:28 | PROVIDERS: ATTEND Thoracic Surgery (Cardiothoracic Vascular Surgery) | DX: J98.11 Atelectasis (principal); Z87.09 Personal history of other diseases of the respiratory system ==

== ENCOUNTER 2017-07-03 09:58 | Day surgery (SDC) | payer OTHER, MEDICARE ==
[2017-07-03] MEDS ORDERED: LIDOCAINE 1% 2 ML INJ ID PRN (10:25)
[2017-07-03] MEDS ORDERED: LR 1,000 ML IV ONE (10:25)
[2017-07-03] MEDS ORDERED: fentaNYL 100 MCG/2 ML INJ ONE (10:57)
[2017-07-03] MEDS ORDERED: MIDAZOLAM 2 MG/2 ML VIAL ONE (10:57)
[2017-07-03] MEDS ORDERED: BOTULINUM TOXIN TYPE A 100 UNIT VIAL MISC ONE (11:00)
--- NOTE | 2017-07-03 11:09 | PDGENHP ---
History and Physical - Chief Complaint dysphagia - History of Present Illness wheezing History Information - Allergies/Home Medication List Allergies/Adverse Reactions: hydrocodone Allergy (Verified 06/30/17 15:10) hallucinations tramadol Allergy (Verified 06/30/17 15:10) hallucinations Home Medications: Acyclovir [Zovirax 400 mg (*)] PRN 08/20/16 [Last Taken 06/19/17] Tamsulosin HCl [Flomax 0.4 MG (*)] HS 08/20/16 [Last Taken 06/30/17] Omeprazole [Prilosec 20 mg] 03/07/17 [Last Taken 07/02/17] QUEtiapine FUMARATE [Seroquel 25 mg (*)] HS 03/07/17 [Last Taken 07/01/17] Warfarin Sodium 03/07/17 [Last Taken 06/30/17] Acetaminophen [Tylenol ES 500 mg (*)] PRN 06/30/17 [Last Taken 06/30/17] Ibuprofen [Motrin (*)] 06/30/17 [Last Taken 06/30/17] I have personally reviewed and updated: family history, social history - Past Medical History atrial fibrillation, GERD, hyperlipidemia, pulmonary embolism (severe mr) Additional medical history: altered mental status (hallucinations, confusion) post anesthesia with pronounced sensitivity to narcs, severe MR, BPH, esophageal stenosis, sick sinus syndrome, pericardial effusion with tamponade - Surgical History Reports: pacemaker/AICD Additional surgical history: Complex MV rpr and left sided AF ablation with cryo via rt thoracotomy with rt fem fem CPB on 08/22/16. perciardial window, esophageal dilation - Social History Smoking Status: Former smoker Review of Systems Review of Systems: ROS: 10pt was reviewed & negative except for what was stated in HPI & below Physical Exam Physical Exam: Temp Pulse Resp BP Pulse Ox 36.4 C 98 20 132/85 H 98 07/03/17 10:28 07/03/17 10:28 07/03/17 10:28 07/03/17 10:28 07/03/17 10:28 Constitutional: no apparent distress, appears nourished, not in pain Eyes: PERRL, anicteric sclera, EOMI Ears, Nose, Mouth, Throat: moist mucous membranes, hearing normal, ears appear normal, no oral mucosal ulcers Cardiovascular: regular rate and rhythym, no murmur, rub, or gallop, No edema Respiratory: no respiratory distress, no rales or rhonchi, clear to auscultation Gastrointestinal: normoactive bowel sounds, soft, non-tender abdomen, no palpable masses Genitourinary: no bladder fullness, no bladder tenderness Skin: warm, normal color, no rashes or abrasions, no fluctuance, no induration, No mottled Musculoskeletal: full muscle strength, no muscle tenderness, normal joint ROM, no joint effusions Psychiatric: interacting appropriately, not anxious, not encephalopathic, thought process linear Lymph, Heme, Immunologic: no cervical LAD, no supraclavicular LAD Assessment & Plan Assessment: achalasia Plan: egd
[2017-07-03 11:10] VITALS: PULSE 98; TEMP 97.5
--- NOTE | 2017-07-03 11:10 | PDPROPOC ---
Sedation Plan of Care Sedation Plan of Care: vital signs stable, mental status noted ASA Classification: ASA 2 Mallampati Score: Class 1 Mallampati Reference Image: Patient passed 3-3-2 rule?: Yes
[2017-07-03 11:13] LABS: INR 1.18 (0.83-1.16); PROTIME(PATIENT) 15.2 SEC (12.0-15.0)
[2017-07-03] MEDS ORDERED: BOTULINUM TOXIN TYPE A 100 UNIT VIAL ID ONE (11:16)
--- NOTE | 2017-07-03 11:42 | GIREPORT ---
[facility] Surgical Services - Endoscopy Department Patient Name: Elier Cuba Procedure Date: 07/03/2017 10:48 AM Patient Type: Outpatient Attending MD/ ER Physician: Joe Vyas MD Procedure: Upper GI endoscopy Indications: Known achalasia. For the most part, very little dysphagia. However, has had trouble with wheezing. EGD now, for botulinum toxin injection, in case of microaspiration. Providers: Joe Vyas MD Referring MD: Mirna Borges Medicines: Fentanyl 100 micrograms IV, Midazolam 5.5 mg IV Complications: No immediate complications. Description of Procedure: After obtaining informed consent, the endoscope was passed under direct vision. Throughout the procedure, the patient's blood pressure, pulse, and oxygen saturations were monitored continuously. The Endoscope was intro duced through the mouth, and advanced to the second part of duodenum. Findings: The examined esophagus was normal. The LES was successfully injected wi th 5 mL botulinum toxin for drug delivery in total, 1.25 ml per quadrant, at the "kris" bulge of the sphincter. 100 units total injected.. The stomach was normal. The examined duodenum was normal. Estimated Blood Loss: Estimated blood loss: none. Post Op Diagnosis: - As above. Hopefully, treatment of his achalasia will help with wheezi ng, if there is a component of microaspiration. However, it's certainly pos sible his wheezing may be a primary pulmonary issue. Recommendation: - Return to primary care physician PRN. If no benefit with wheezing aft er the above, recommend pulmonary consultation. - Thank you for allowing me to help in the management of this patient. Attending Participation: I personally performed the entire procedure. Lilliam Diaz MD Joe Vyas MD 07/03/2017 11:41:22 AM This report has been signed electronicallyPeter MD Lilliam Number of Addenda: 0 Note Initiated On: 07/03/2017 10:48 AM [email or web address]
[2017-07-03 13:05] VITALS: BP 101/62; RESP 9; O2SAT 97
== END 2017-07-03 13:18 | disposition home or self-care (01) ==
LOC: FSGY 09:58
PROVIDERS: ATTEND Internal Medicine Gastroenterology
PROC: 3E0G3GC Introduction of Other Therapeutic Substance into Upper GI, Percutaneous Approach (ICD-10-PCS; principal; 2017-07-03 11:00)
PROC: 0DJ08ZZ Inspection of Upper Intestinal Tract, Via Natural or Artificial Opening Endoscopic (ICD-10-PCS; principal; 2017-07-03 11:00)
DX: K22.0 Achalasia of cardia (principal); R13.10 Dysphagia, unspecified; I48.91 Unspecified atrial fibrillation; K21.9 Gastro-esophageal reflux disease without esophagitis; E78.5 Hyperlipidemia, unspecified; Z95.0 Presence of cardiac pacemaker; Z87.891 Personal history of nicotine dependence; Z86.711 Personal history of pulmonary embolism
CPT/HCPCS: J0585; J2250; J3010

== ENCOUNTER → 2017-09-18 | Outpatient (CLI) | payer OTHER, MEDICARE ==
[~2017-09-18] MED LIST changes: +IOPAMIDOL (ISOVUE-300) 100 ML BTL ONE; -LIDOCAINE 1% 5 ML SDV ID PRN; -ceFAZolin 2 GM/SWFI 2 GM/20 ML SYR IVP ONE
== END ==
LOC: FIMAGING 10:10
PROVIDERS: ATTEND Otolaryngology
DX: J02.9 Acute pharyngitis, unspecified (principal); M50.31 Other cervical disc degeneration, high cervical region
CPT/HCPCS: 70491; Q9967

== ENCOUNTER → 2017-11-08 | Outpatient (CLI) | payer OTHER, MEDICARE | LOC: FIMAGING 15:09 | PROVIDERS: ATTEND Emergency Medicine | DX: J98.4 Other disorders of lung (principal) | CPT/HCPCS: 82607-90 ==

== ENCOUNTER → 2018-04-23 | Outpatient (CLI) | payer OTHER, MEDICARE | LOC: CIMAGING 11:31 | PROVIDERS: ATTEND Internal Medicine | DX: J40 Bronchitis, not specified as acute or chronic (principal) | CPT/HCPCS: 71046-PO ==